=== PATIENT | male | born 1980 | race African-American/Black ===

== ENCOUNTER 2018-05-21 06:14 | Emergency (ER) | payer OTHER ==
[2018-05-21 07:02] LABS: Bilirubin Negative (Negative); Blood, Urine Moderate (Negative); Glucose, Urine (Dipstick) Negative (Negative); Leukocyte Large (Negative); Nitrite Positive (Negative); Protein, Urine (Dipstick) Negative (Neg-Trace); Specific Gravity, Urine 1.015 (1.005-1.030)
[2018-05-21 07:03] LABS: Clarity Cloudy (Clear)
[2018-05-21 07:06] LABS: #Eosinphils 0.3 thou/uL (0.0-0.7); #Lymphocytes 1.6 thou/uL (1.20-3.40); #Monocytes 0.6 thou/uL (0.11-0.59); #Neutrophils 3.5 thou/uL (1.40-6.50); %Basophils 0.8 % (0.0-1.0); %Eosinophils 4.3 % (0.0-10.0); %Lymphocytes 26.8 % (21.0-51.0); %Monocytes 9.2 % (0.0-10.0); %Neutrophils 58.8 % (42.0-75.0); Hemoglobin 14.7 g/dL (14.0-18.0); Mean Corpuscular HGB CONC 32.7 g/dL (32.0-36.0); Mean Corpuscular Hemoglobin 29.4 pg (27.0-31.0); Mean Corpuscular Volume 89.9 fL (78.0-98.0); Mean Platelet Volume 7.8 fL (7.4-10.4); Platelet Count 243 thou/uL (130-400); RBC Distribution Width 12.6 % (11.5-14.5); Red Blood Cell (RBC) Count 5.02 mill/uL (4.70-6.10); White Blood Cell (WBC) Count 5.9 thou/uL (4.8-10.8)
[2018-05-21 07:16] LABS: WBC/HPF 21-50 HPF (0-3)
[2018-05-21 07:17] LABS: Bacteria/HPF 2+ HPF (None Seen); Squamous Epithelial 0-3 HPF (0-3); Yeast-All Forms None Seen HPF (None Seen)
[2018-05-21 07:20] LABS: Crystals/HPF 4+ AMORPH URATES HPF (Negative)
[2018-05-21 07:30] LABS: ALT (SGPT) 13 U/L (8-55); AST (SGOT) 17 U/L (5-34); Alkaline Phosphatase 149 U/L (40-150); Anion Gap 10 mmol/L (10-20); BUN (Urea Nitrogen) 14 mg/dL (8.9-20.6); Bilirubin, Total 0.9 mg/dL (0.2-1.2); Calc. Creatinine Clearance 0 mL/min (70-130); Calcium 9.3 mg/dL (7.8-10.44); Carbon Dioxide 24 mmol/L (22-29); Chloride 107 mmol/L (98-107); Estimated GFR-MDRD Greater than 90; Globulin 3.7 g/dL (2.4-3.5); Glucose 120 mg/dL (70-105); Lipase 4 U/L (8-78); Potassium 4.4 mmol/L (3.5-5.1); Protein, Total 7.7 g/dL (6.0-8.3); Sodium 137 mmol/L (136-145)
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
[2018-05-21] MEDS ORDERED: ISOVUE-370 76%-LOCM 1 ML ONE (12:26)
== END 2018-05-21 13:47 | disposition home or self-care (01) ==
LOC: ERS 06:14
DX: N39.0 Urinary tract infection, site not specified (principal); R00.2 Palpitations; I10 Essential (primary) hypertension; Z79.899 Other long term (current) drug therapy
CPT/HCPCS: 36415; 51702; 74177; 80053; 81003; 81015; 83690; 85025; 93005

== ENCOUNTER 2018-08-11 09:00 | Emergency (ER) | payer OTHER ==
[2018-08-11 10:09] LABS: #Eosinphils 0.1 thou/uL (0.0-0.7); #Lymphocytes 1.2 thou/uL (1.20-3.40); #Monocytes 0.3 thou/uL (0.11-0.59); #Neutrophils 4.7 thou/uL (1.40-6.50); %Basophils 0.4 % (0.0-1.0); %Lymphocytes 19.1 % (21.0-51.0); %Monocytes 5.2 % (0.0-10.0); %Neutrophils 73.2 % (42.0-75.0); Hemoglobin 14.2 g/dL (14.0-18.0); Mean Corpuscular HGB CONC 32.6 g/dL (32.0-36.0); Mean Platelet Volume 8.2 fL (7.4-10.4); Platelet Count 181 thou/uL (130-400); RBC Distribution Width 12.7 % (11.5-14.5); Red Blood Cell (RBC) Count 4.72 mill/uL (4.70-6.10); White Blood Cell (WBC) Count 6.5 thou/uL (4.8-10.8)
[2018-08-11 10:31] LABS: ALT (SGPT) 13 U/L (8-55); AST (SGOT) 14 U/L (5-34); Albumin 3.6 g/dL (3.5-5.0); Alkaline Phosphatase 148 U/L (40-150); Anion Gap 15 mmol/L (10-20); BUN (Urea Nitrogen) 5 mg/dL (8.9-20.6); Bilirubin, Total 1.1 mg/dL (0.2-1.2); Calc. Creatinine Clearance 0 mL/min (70-130); Calcium 8.8 mg/dL (7.8-10.44); Carbon Dioxide 18 mmol/L (22-29); Chloride 109 mmol/L (98-107); Estimated GFR-MDRD Greater than 90; Globulin 3.8 g/dL (2.4-3.5); Glucose 88 mg/dL (70-105); Potassium 4.3 mmol/L (3.5-5.1); Protein, Total 7.4 g/dL (6.0-8.3); Sodium 138 mmol/L (136-145)
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
--- NOTE | 2018-08-11 12:46 | CT ---
CT PULMONARY ANGIOGRAM WITH IV CONTRAST AND 3D POSTPROCESSING: Date: 08/11/18 HISTORY: Chest pain. FINDINGS: No filling defects are seen in the pulmonary arterial vasculature to suggest pulmonary embolism. No t horacic aortic aneurysm or dissection is seen. No pleural or pericardial effusions are identified. No pneumothoraces or lobar consolidation are seen. There are dependent changes in the left lung base. T here is patchy infiltrate versus atelectatic change in the right middle lobe. IMPRESSION: No CT evidence of pulmonary embolism. POS: [facility]
--- NOTE | 2018-08-11 13:21 | CT ---
CT ABDOMEN AND PELVIS WITHOUT CONTRAST: Date: 08/11/18 HISTORY: Abdominal pain, constipation. FINDINGS: Absence of oral and IV contrast reduces the sensitivity of exam, particularly for evaluation of solid organs and bowel. There is contrast in the pelvicaliceal systems and the ureters and urinary bladder from recent CT pul monary angiogram performed earlier today at 1140 hours. No hydroureteronephrosis is seen on either side. There is a Summers catheter in the urinary bladder. No calcified gallstones are seen. No free air or free fluid is noted in the abdomen or pelvis. There is fecal material in the colon. There are vascular calcifications without evidence of aneurysmal dila tation of the abdominal aorta. There are degenerative changes of the spine. A normal appearing append ix is seen. IMPRESSION: 1. Constipation. 2. No CT evidence of urinary tract obstruction or appendicitis. POS: [facility]
[2018-08-11 13:27] LABS: Troponin I Less than 0.010 ng/mL (< 0.028)
== END 2018-08-11 15:32 | disposition home or self-care (01) ==
LOC: ERS 09:00
DX: K59.00 Constipation, unspecified (principal); I10 Essential (primary) hypertension; E78.5 Hyperlipidemia, unspecified; Z79.899 Other long term (current) drug therapy
CPT/HCPCS: 36415; 71045; 71275; 74177; 80053; 83880; 84484; 85025; 93005

== ENCOUNTER 2019-07-16 05:36 | Inpatient (IN) | payer OTHER ==
[2019-07-16 06:12] LABS: Bacteria/HPF 3+ HPF (None Seen); Bilirubin Negative (Negative); Blood, Urine Trace (Negative); Clarity Turbid (Clear); Glucose, Urine (Dipstick) Normal (Negative); Leukocyte 250 Leu/uL (Negative); Nitrite Negative (Negative); Protein, Urine (Dipstick) Negative (Neg-Trace); RBC/HPF 0-3 HPF (0-3); Squamous Epithelial 0-3 HPF (0-3); Urobilinogen Normal mg/dL (Less than 2)
[2019-07-16 06:13] LABS: Unclassified Crystals 1+ HPF (None Seen)
[2019-07-16 06:40] LABS: Hemoglobin 12.9 g/dL (14.0-18.0); Mean Corpuscular HGB CONC 32.2 g/dL (32.0-36.0); Mean Corpuscular Hemoglobin 28.9 pg (27.0-31.0); Mean Corpuscular Volume 89.5 fL (78.0-98.0); Mean Platelet Volume 8.1 fL (7.4-10.4); Platelet Count 208 thou/uL (130-400); RBC Distribution Width 12.8 % (11.5-14.5); Red Blood Cell (RBC) Count 4.46 mill/uL (4.70-6.10); White Blood Cell (WBC) Count 22.4 thou/uL (4.8-10.8)
[2019-07-16 06:54] LABS: Band 1 % (5-11); Hypochromia SLIGHT = 6-15 cells (100X) (0-5/hpf); Lymphocytes 6 % (21-51); MDiff Complete? YES; Monocytes 3 % (0-10); Neutrophil 90 % (42-75); Platelet Morphology Comment Appears Adequate
[2019-07-16 07:05] LABS: ALT (SGPT) 36 U/L (8-55); AST (SGOT) 32 U/L (5-34); Albumin 3.8 g/dL (3.5-5.0); Alkaline Phosphatase 184 U/L (40-110); Anion Gap 13 mmol/L (10-20); BUN (Urea Nitrogen) 12 mg/dL (8.9-20.6); Bilirubin, Total 1.7 mg/dL (0.2-1.2); Calc. Creatinine Clearance 0 mL/min (70-130); Calcium 8.7 mg/dL (7.8-10.44); Carbon Dioxide 20 mmol/L (22-29); Chloride 103 mmol/L (98-107); Estimated GFR-MDRD Greater than 90; Globulin 3.1 g/dL (2.4-3.5); Glucose 124 mg/dL (70-105); Potassium 3.9 mmol/L (3.5-5.1); Protein, Total 6.9 g/dL (6.0-8.3); Sodium 132 mmol/L (136-145)
[2019-07-16] MEDS ORDERED: Vancomycin HCl 1 GM in Premix Bag 1 BAG IVPB SCH (08:15)
[2019-07-16] MEDS ORDERED: cefTRIAXone\\ROCEPHIN 2 GM in Sodium Chloride 0.9% 100 ML IVPB SCH (08:15)
[2019-07-16] MEDS ORDERED: cefTRIAXone\\ROCEPHIN 2 GM VIAL ONE (08:28)
[2019-07-16] MEDS ORDERED: HYDROCORTISONE SOD SUCC IVPB SCH (08:30)
[2019-07-16] MEDS ORDERED: SODIUM CHLORIDE 0.9% IVPB SCH (08:30)
--- NOTE | 2019-07-16 09:36 | RAD ---
CHEST 1 VIEW: INDICATION: Chest pain. COMPARISON: Prior exam dated 08/11/2018. FINDINGS: Prominent right pericardial fat pad is again noted. Heart size is accentuated by exam technique. No pleural effusion or pneumothorax is evident. No acute osseous abnormality is noted. IMPRESSION: No acute cardiopulmonary abnormality. POS: [facility]
[2019-07-16] MEDS ORDERED: Ondansetron ODT 4 MG TAB PO PRN (10:14)
[2019-07-16] MEDS ORDERED: Acetaminophen 325 MG TAB PO PRN (10:14)
[2019-07-16] MEDS ORDERED: Ondansetron PF 4 MG/2 ML Vial IVP PRN (10:14)
[2019-07-16] MEDS ORDERED: Sodium Chloride 0.9% 1,000 ML IV SCH (10:15)
[2019-07-16 10:30] VITALS: BMI 35.8
[2019-07-16] MEDS ORDERED: Senokot S 8.6-50 MG TAB PO PRN (10:55)
[2019-07-16] MEDS ORDERED: Bisacodyl 10 MG SUPP PR PRN (10:55)
[2019-07-16] MEDS ORDERED: Guaifenesin DM 100-10/5 ML UDCUP PO PRN (10:55)
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
[2019-07-16] MEDS: Sodium Chloride 0.9% 1,000 ML IV SCH (13:06)
--- NOTE | 2019-07-16 14:53 | CT ---
CT OF THE ABDOMEN AND PELVIS WITHOUT IV CONTRAST INDICATION: Sepsis with indwelling Summers catheter and quadriplegia COMPARISON: CT the abdomen and pelvis dated August 11, 2018 FINDINGS: This examination is limited for the evaluation of solid organs and vascular structures due to the lac k of intravenous contrast. ABDOMEN: Lung bases: There is mild bibasilar atelectasis. Liver: No focal lesion. Gallbladder: Normal appearing. Pancreas: Normal. Adrenal glands: Normal. Spleen: Normal. Kidneys and ureters: No renal or ureteral calculus is evident. 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 Vasculature: There are mild vascular calcifications seen involving the visualized vasculature. Lymph nodes:No lymphadenopathy. Free fluid in abdomen:No free fluid is evident. PELVIS: Small and large bowel: There is a moderate amount of retained stool within the colon. There is mild g aseous distention of the sigmoid colon. Appendix:Normal Bladder: Decompressed with a Summers catheter Rectal and perirectal soft tissues:Normal. Reproductive structures: Normal. Free fluid in pelvis: No free fluid is evident. Lymphadenopathy pelvis: No lymphadenopathy is evident. Osseous structures: There is prominent heterotopic ossification surrounding both hips, right greater than left. There is diffuse osteopenia. There is scattered degenerative and osteoarthritic change. Soft tissues:Normal. IMPRESSION: 1. No acute abnormality. 2. Moderate amount retained stool within the colon.
[2019-07-16] MEDS: Metoclopramide HCl 10 MG TAB PO SCH ×2 (15:08→20:42)
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
[2019-07-16] MEDS: Vancomycin HCl 1.75 GM in Sodium Chloride 0.9% 500 ML IVPB SCH (17:38)
[2019-07-16] MEDS: Famotidine 20 MG TAB PO SCH (20:42)
[2019-07-16] MEDS ORDERED: Vancomycin HCl 1 GM in Sodium Chloride 0.9% 250 ML 300 ML IVPB SCH (21:00)
[2019-07-17] MEDS: traZODone HCl 50 MG TAB PO PRN (00:34)
[2019-07-17] MEDS: Acetaminophen 325 MG TAB PO PRN ×2 (00:34→20:04)
[2019-07-17] MEDS: Vancomycin HCl 1.75 GM in Sodium Chloride 0.9% 500 ML IVPB SCH ×2 (01:33→11:18)
[2019-07-17] MEDS: Sodium Chloride 0.9% 1,000 ML IV SCH ×2 (05:17→08:48)
[2019-07-17] MEDS: cefTRIAXone\\ROCEPHIN 2 GM in Sodium Chloride 0.9% 100 ML IVPB SCH (08:48)
[2019-07-17] MEDS: Baclofen 10 MG TAB PO PRN (08:48)
[2019-07-17] MEDS: Famotidine 20 MG TAB PO SCH ×2 (08:49→20:03)
[2019-07-17] MEDS: Metoclopramide HCl 10 MG TAB PO SCH ×3 (08:49→20:03)
[2019-07-17] MEDS: Enoxaparin Sodium 40 MG/0.4 ML SYRINGE SC SCH (08:49)
[2019-07-17] MEDS ORDERED: Lisinopril 10 MG TAB PO SCH (09:00)
[2019-07-17] MEDS: Lisinopril 10 MG TAB PO SCH (09:23)
[2019-07-17 10:51] LABS: Mean Corpuscular HGB CONC 33.7 g/dL (32.0-36.0); Mean Corpuscular Hemoglobin 29.8 pg (27.0-31.0); Mean Corpuscular Volume 88.6 fL (78.0-98.0); Mean Platelet Volume 8.6 fL (7.4-10.4); Platelet Count 190 thou/uL (130-400); RBC Distribution Width 12.7 % (11.5-14.5); White Blood Cell (WBC) Count 10.6 thou/uL (4.8-10.8)
[2019-07-17 11:09] LABS: Vancomycin, Trough 20.3 ug/mL
[2019-07-17 11:09] LABS: Chloride 113 mmol/L (98-107); Potassium 3.5 mmol/L (3.5-5.1); Sodium 140 mmol/L (136-145)
[2019-07-17 11:10] LABS: Anion Gap 15 mmol/L (10-20); BUN (Urea Nitrogen) 6 mg/dL (8.9-20.6); Calc. Creatinine Clearance 261 mL/min (70-130); Calcium 8.4 mg/dL (7.8-10.44); Carbon Dioxide 16 mmol/L (22-29); Estimated GFR-MDRD Greater than 90; Glucose 149 mg/dL (70-105)
[2019-07-17 11:33] LABS: Eosinophils 1 % (0-10); Lymphocytes 12 % (21-51); MDiff Complete? YES; Monocytes 7 % (0-10); Neutrophil 76 % (42-75); Platelet Morphology Comment Appears Adequate; Reactive Lymphocytes 4 % (0-10); Vacuoles SLIGHT
--- NOTE | 2019-07-17 13:08 | PDOC.HOSPP ---
- Subjective Encounter Date: 07/17/19 Encounter Time: 09:20 Subjective: Pt seen for followup re; sepsis. States he feels better. - Objective Vital Signs & Weight: Vital Signs (12 hours) Temp Pulse Resp BP BP BP Pulse Ox 07/17/19 11:17 98.5 F 81 17 136/86 100 07/17/19 09:23 150/80 H 07/17/19 08:00 99 07/17/19 07:08 98.2 F 81 17 150/80 H 99 07/17/19 05:28 162/92 H 07/17/19 05:05 98.5 F 84 20 98 Weight Weight 257 lb I&O: 07/16/19 07/17/19 07/18/19 06:59 06:59 06:59 Output Total 1650 Balance -1650 Result Diagrams: 07/17/19 10:18 07/17/19 10:18 Additional Labs: Accuchecks 07/17/19 07/16/19 04:26 19:23 POC Glucose 101 221 H Labs and MARs reviewed by nm Hospitalist ROS - Review of Systems Cardiovascular: denies: chest pain, palpitations, orthopnea, paroxysmal noc. dyspnea, edema, light headedness Gastrointestinal: denies: nausea, vomiting, abdominal pain, diarrhea, constipation, melena, hematochezia - Medication Medications: Active Medications Generic Name Dose Route Start Last Admin Trade Name Freq PRN Reason Stop Dose Admin Acetaminophen 650 mg 07/16/19 10:55 07/17/19 00:34 Tylenol PO 650 mg Q4H PRN Administration Headache/Fever/Mild Pain (1-3) Baclofen 10 mg 07/16/19 10:55 07/17/19 08:48 Lioresal PO 10 mg BID PRN Administration spasm Enoxaparin Sodium 40 mg 07/17/19 09:00 07/17/19 08:49 Lovenox SC 40 mg 0900 JULIO Administration Famotidine 20 mg 07/16/19 21:00 07/17/19 08:49 Pepcid PO 20 mg BID JULIO Administration Ceftriaxone Sodium 2 gm/ 100 mls @ 200 mls/hr 07/17/19 09:00 07/17/19 08:48 Sodium Chloride IVPB 100 mls Q24HR JULIO Administration Sodium Chloride 1,000 mls @ 100 mls/hr 07/16/19 11:00 07/17/19 08:48 Normal Saline 0.9% IV 07/17/19 16:59 1,000 mls .Q10H JULIO Administration Lisinopril 10 mg 07/17/19 09:00 07/17/19 09:23 Zestril PO 10 mg DAILY JULIO Administration Metoclopramide HCl 5 mg 07/16/19 15:00 07/17/19 08:49 Reglan PO 5 mg TID JULIO Administration Sodium Chloride 10 ml 07/16/19 21:00 07/17/19 08:50 Flush - Normal Saline IVF 10 ml Q12HR JULIO Administration Trazodone HCl 50 mg 07/16/19 10:55 07/17/19 00:34 Desyrel PO 50 mg HS PRN Administration Insomnia - Exam General - other findings: Obese Eye: anicteric sclera ENT: moist mucosa Neck: supple Heart: RRR Respiratory: CTAB Gastrointestinal: soft Neurological - other findings: quadriplegia Psychiatric: normal affect, normal behavior Hosp A/P (1) Sepsis Code(s): A41.9 - SEPSIS, UNSPECIFIED ORGANISM Status: Acute (2) UTI (urinary tract infection) Status: Acute (3) Quadriplegia Code(s): G82.50 - QUADRIPLEGIA, UNSPECIFIED Status: Chronic (4) HTN (hypertension) Code(s): I10 - ESSENTIAL (PRIMARY) HYPERTENSION Status: Chronic - Plan continue antibiotics HTN controlled. Continue IV ceftriaxone and IV vancomycin.
--- NOTE | 2019-07-17 17:23 | ULT ---
BILATERAL LOWER EXTREMITY VENOUS DUPLEX EXAM: 07/17/19 INDICATIONS: Bilateral lower extremity pain and edema. Veins of both lower extremities evaluated with ultrasound and Doppler. Color Doppler with spectral an alysis and compression studies performed. Deep veins of both lower extremities show normal blood flow and compression. No evidence of DVT. IMPRESSION: Negative bilateral lower extremity venous duplex exam. POS: [facility]
[2019-07-17] MEDS: Vancomycin 1.5 GRAM/300 ML BAG 1.5 GM in Premix Bag 1 BAG IVPB SCH (20:03)
[2019-07-18] MEDS ORDERED: Non-Formulary Medication 1 EACH PO PRN (00:13)
[2019-07-18] MEDS: traZODone HCl 50 MG TAB PO PRN (00:37)
[2019-07-18] MEDS ORDERED: Non-Formulary Medication 1 EACH PR PRN (04:00)
[2019-07-18] MEDS: Vancomycin 1.5 GRAM/300 ML BAG 1.5 GM in Premix Bag 1 BAG IVPB SCH ×2 (04:36→12:44)
[2019-07-18 05:46] LABS: #Eosinphils 0.2 thou/uL (0.0-0.7); #Monocytes 0.8 thou/uL (0.11-0.59); #Neutrophils 4.4 thou/uL (1.40-6.50); %Basophils 0.2 % (0.0-1.0); %Eosinophils 3.3 % (0.0-10.0); %Lymphocytes 26.8 % (21.0-51.0); %Monocytes 10.4 % (0.0-10.0); %Neutrophils 59.3 % (42.0-75.0); Hemoglobin 12.2 g/dL (14.0-18.0); Mean Corpuscular HGB CONC 33.3 g/dL (32.0-36.0); Mean Platelet Volume 8.2 fL (7.4-10.4); Platelet Count 193 thou/uL (130-400); RBC Distribution Width 12.8 % (11.5-14.5); Red Blood Cell (RBC) Count 4.07 mill/uL (4.70-6.10); White Blood Cell (WBC) Count 7.4 thou/uL (4.8-10.8)
[2019-07-18] MEDS: Baclofen 10 MG TAB PO PRN (05:46)
[2019-07-18 06:07] LABS: Anion Gap 10 mmol/L (10-20); BUN (Urea Nitrogen) 5 mg/dL (8.9-20.6); Calc. Creatinine Clearance 284 mL/min (70-130); Calcium 8.6 mg/dL (7.8-10.44); Carbon Dioxide 22 mmol/L (22-29); Chloride 112 mmol/L (98-107); Estimated GFR-MDRD Greater than 90; Glucose 81 mg/dL (70-105); Potassium 3.3 mmol/L (3.5-5.1); Sodium 141 mmol/L (136-145)
[2019-07-18] MEDS: Metoclopramide HCl 10 MG TAB PO SCH ×3 (08:35→20:08)
[2019-07-18] MEDS: Famotidine 20 MG TAB PO SCH ×2 (08:36→20:08)
[2019-07-18] MEDS: Lisinopril 10 MG TAB PO SCH (08:37)
[2019-07-18] MEDS: cefTRIAXone\\ROCEPHIN 2 GM in Sodium Chloride 0.9% 100 ML IVPB SCH (08:38)
[2019-07-18] MEDS: Enoxaparin Sodium 40 MG/0.4 ML SYRINGE SC SCH (08:38)
--- NOTE | 2019-07-18 13:04 | PDOC.HOSPP ---
- Subjective Encounter Date: 07/18/19 Encounter Time: 08:40 Subjective: Pt seen for followup re: sepsis. Feels better. - Objective Vital Signs & Weight: Vital Signs (12 hours) Temp Pulse Resp BP BP Pulse Ox 07/18/19 08:02 98.3 F 85 16 138/88 99 07/18/19 08:00 99 07/18/19 04:44 145/90 H 07/18/19 04:00 98.7 F 78 20 96 Weight Weight 257 lb I&O: 07/17/19 07/18/19 07/19/19 06:59 06:59 06:59 Intake Total 500 Output Total 1650 1300 Balance -1650 -800 Result Diagrams: 07/18/19 05:12 07/18/19 05:12 Additional Labs: Labs and MARs reviewed by ma Hospitalist ROS - Review of Systems Constitutional: denies: fever, chills, sweats, weakness, malaise Cardiovascular: denies: chest pain, palpitations, orthopnea, paroxysmal noc. dyspnea, edema, light headedness Gastrointestinal: denies: nausea, vomiting, abdominal pain, diarrhea, constipation, melena, hematochezia - Medication Medications: Active Medications Generic Name Dose Route Start Last Admin Trade Name Freq PRN Reason Stop Dose Admin Acetaminophen 650 mg 07/16/19 10:55 07/17/19 20:04 Tylenol PO 650 mg Q4H PRN Administration Headache/Fever/Mild Pain (1-3) Baclofen 10 mg 07/16/19 10:55 07/18/19 05:46 Lioresal PO 10 mg BID PRN Administration spasm Enoxaparin Sodium 40 mg 07/17/19 09:00 07/18/19 08:38 Lovenox SC 40 mg 0900 JULIO Administration Famotidine 20 mg 07/16/19 21:00 07/18/19 08:36 Pepcid PO 20 mg BID JULIO Administration Ceftriaxone Sodium 2 gm/ 100 mls @ 200 mls/hr 07/17/19 09:00 07/18/19 08:38 Sodium Chloride IVPB 100 mls Q24HR JULIO Administration Lisinopril 10 mg 07/17/19 09:00 07/18/19 08:37 Zestril PO 10 mg DAILY JULIO Administration Metoclopramide HCl 5 mg 07/16/19 15:00 07/18/19 08:35 Reglan PO 5 mg TID JULIO Administration Non-Formulary Medication 0 each 07/18/19 04:00 07/18/19 00:30 AL 1 each PRN PRN Administration BOWEL PROGRAM Sodium Chloride 10 ml 07/16/19 21:00 07/18/19 08:39 Flush - Normal Saline IVF 10 ml Q12HR JULIO Administration Trazodone HCl 50 mg 07/16/19 10:55 07/18/19 00:37 Desyrel PO 50 mg HS PRN Administration Insomnia - Exam General Appearance: awake alert General - other findings: Obese Eye: anicteric sclera ENT: moist mucosa Neck: supple Heart: RRR Respiratory: CTAB, no wheezes Gastrointestinal: soft Extremities: no cyanosis Neurological - other findings: quadriplegia Psychiatric: normal affect, normal behavior Hosp A/P (1) Sepsis Code(s): A41.9 - SEPSIS, UNSPECIFIED ORGANISM Status: Acute (2) UTI (urinary tract infection) Status: Acute (3) Bacteremia Code(s): R78.81 - BACTEREMIA Status: Acute (4) Quadriplegia Code(s): G82.50 - QUADRIPLEGIA, UNSPECIFIED Status: Chronic (5) HTN (hypertension) Code(s): I10 - ESSENTIAL (PRIMARY) HYPERTENSION Status: Chronic - Plan continue antibiotics bacteremia 2/2 samples, await identification. Urine cultures growing gram negative organisms, await identification. Replace potassium. HTN controlled. Continue IV ceftriaxone and IV vancomycin.
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
[2019-07-18] MEDS ORDERED: Potassium Chloride 20 MEQ TAB PO SCH (13:15)
[2019-07-18] MEDS ORDERED: hydrALAZINE 20 MG/ML VIAL SLOW IVP PRN (19:42)
[2019-07-19] MEDS: Acetaminophen 325 MG TAB PO PRN (00:20)
[2019-07-19] MEDS: Baclofen 10 MG TAB PO PRN ×2 (00:20→12:47)
[2019-07-19] MEDS ORDERED: hydrALAZINE 20 MG/ML VIAL SLOW IVP SCH (00:45)
[2019-07-19 06:06] LABS: #Eosinphils 0.3 thou/uL (0.0-0.7); #Lymphocytes 1.7 thou/uL (1.20-3.40); #Monocytes 0.5 thou/uL (0.11-0.59); #Neutrophils 3.3 thou/uL (1.40-6.50); %Basophils 0.2 % (0.0-1.0); %Eosinophils 5.1 % (0.0-10.0); %Lymphocytes 29.3 % (21.0-51.0); %Monocytes 8.3 % (0.0-10.0); %Neutrophils 57.1 % (42.0-75.0); Hemoglobin 11.6 g/dL (14.0-18.0); Mean Corpuscular HGB CONC 32.8 g/dL (32.0-36.0); Mean Corpuscular Hemoglobin 29.4 pg (27.0-31.0); Mean Corpuscular Volume 89.8 fL (78.0-98.0); Platelet Count 206 thou/uL (130-400); RBC Distribution Width 12.8 % (11.5-14.5); Red Blood Cell (RBC) Count 3.93 mill/uL (4.70-6.10); White Blood Cell (WBC) Count 5.8 thou/uL (4.8-10.8)
[2019-07-19 06:27] LABS: Anion Gap 9 mmol/L (10-20); BUN (Urea Nitrogen) 4 mg/dL (8.9-20.6); Calc. Creatinine Clearance 300 mL/min (70-130); Calcium 8.7 mg/dL (7.8-10.44); Carbon Dioxide 25 mmol/L (22-29); Chloride 110 mmol/L (98-107); Estimated GFR-MDRD Greater than 90; Glucose 93 mg/dL (70-105); Potassium 3.4 mmol/L (3.5-5.1); Sodium 141 mmol/L (136-145)
[2019-07-19] MEDS: Enoxaparin Sodium 40 MG/0.4 ML SYRINGE SC SCH (08:19)
[2019-07-19] MEDS: Metoclopramide HCl 10 MG TAB PO SCH ×3 (08:22→20:23)
[2019-07-19] MEDS: Lisinopril 20 MG TAB PO SCH (08:23)
[2019-07-19] MEDS: Famotidine 20 MG TAB PO SCH ×2 (08:25→20:23)
[2019-07-19] MEDS: cefTRIAXone\\ROCEPHIN 2 GM in Sodium Chloride 0.9% 100 ML IVPB SCH (08:29)
[2019-07-19] MEDS ORDERED: Morphine 2 MG/ML SYRINGE SLOW IVP PRN (12:49)
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
[2019-07-19] MEDS: Sodium Chloride 0.9% 1,000 ML IV SCH (15:16)
--- NOTE | 2019-07-19 18:54 | PDOC.HOSPP ---
- Subjective Encounter Date: 07/19/19 Encounter Time: 09:20 Subjective: Pt seen for followup re: sepsis. States he feels better. No complaints. - Objective Vital Signs & Weight: Vital Signs (12 hours) Temp Pulse Resp BP Pulse Ox 07/19/19 16:59 98.1 F 77 18 171/111 H 98 07/19/19 16:33 97.5 F L 74 14 162/108 H 94 L 07/19/19 11:42 97.6 F 80 14 177/119 H 93 L 07/19/19 08:00 94 L 07/19/19 07:43 97.5 F L 74 14 162/108 H 94 L Weight Weight 257 lb I&O: 07/18/19 07/19/19 07/20/19 06:59 06:59 06:59 Intake Total 500 621 Output Total 1300 4400 Balance -796 -1273 Result Diagrams: 07/19/19 05:24 07/19/19 05:24 Additional Labs: Labs and MARs reviewed by nj Hospitalist ROS - Review of Systems Constitutional: denies: fever, chills, sweats, weakness, malaise Cardiovascular: denies: chest pain, palpitations, orthopnea, paroxysmal noc. dyspnea, edema, light headedness - Medication Medications: Active Medications Generic Name Dose Route Start Last Admin Trade Name Freq PRN Reason Stop Dose Admin Acetaminophen 650 mg 07/16/19 10:55 07/19/19 00:20 Tylenol PO 650 mg Q4H PRN Administration Headache/Fever/Mild Pain (1-3) Baclofen 10 mg 07/16/19 10:55 07/19/19 12:47 Lioresal PO 10 mg BID PRN Administration spasm Enoxaparin Sodium 40 mg 07/17/19 09:00 07/19/19 08:19 Lovenox SC 40 mg 0900 JULIO Administration Famotidine 20 mg 07/16/19 21:00 07/19/19 08:25 Pepcid PO 20 mg BID JULIO Administration Ceftriaxone Sodium 2 gm/ 100 mls @ 200 mls/hr 07/17/19 09:00 07/19/19 08:29 Sodium Chloride IVPB 100 mls Q24HR JULIO Administration Sodium Chloride 1,000 mls @ 50 mls/hr 07/19/19 14:00 07/19/19 15:16 Normal Saline 0.9% IV 1,000 mls .Q20H JULIO Administration Lisinopril 40 mg 07/19/19 09:00 07/19/19 08:23 Zestril PO 10 mg DAILY JULIO Administration Metoclopramide HCl 5 mg 07/16/19 15:00 07/19/19 15:17 Reglan PO 5 mg TID JULIO Administration Non-Formulary Medication 0 each 07/18/19 04:00 07/18/19 00:30 [place] 1 each PRN PRN Administration BOWEL PROGRAM Sodium Chloride 10 ml 07/16/19 21:00 07/19/19 08:29 Flush - Normal Saline IVF 10 ml Q12HR JULIO Administration Trazodone HCl 50 mg 07/16/19 10:55 07/18/19 00:37 Desyrel PO 50 mg HS PRN Administration Insomnia - Exam General Appearance: awake alert General - other findings: Obese Eye: anicteric sclera ENT: no oropharyngeal lesions, moist mucosa Neck: supple Heart: RRR Respiratory: CTAB Gastrointestinal: soft Neurological - other findings: Quadriplegia Psychiatric: normal affect, normal behavior Hosp A/P (1) Sepsis Code(s): A41.9 - SEPSIS, UNSPECIFIED ORGANISM Status: Acute (2) UTI (urinary tract infection) Status: Acute (3) Bacteremia Code(s): R78.81 - BACTEREMIA Status: Acute (4) Quadriplegia Code(s): G82.50 - QUADRIPLEGIA, UNSPECIFIED Status: Chronic (5) HTN (hypertension) Code(s): I10 - ESSENTIAL (PRIMARY) HYPERTENSION Status: Chronic - Plan continue antibiotics Sepsis due to UTI due to indwelling catheter, present on admission. bacteremia 2/2 samples with staph epidermidis. Urine cultures growing Enterobacter and Pseudomonas. Replace potassium. BP high, add scheduled hydralazine. Start PRN PO clonidine. Continue IV ceftriaxone.
[2019-07-19] MEDS ORDERED: Potassium Chloride 20 MEQ TAB PO SCH (19:00)
[2019-07-19] MEDS: hydrALAZINE 25 MG TAB PO SCH (20:23)
[2019-07-20] MEDS: cloNIDine 0.1 MG TAB PO PRN ×2 (00:56→18:31)
[2019-07-20 06:21] LABS: #Eosinphils 0.3 thou/uL (0.0-0.7); #Lymphocytes 1.9 thou/uL (1.20-3.40); #Monocytes 0.5 thou/uL (0.11-0.59); #Neutrophils 3.8 thou/uL (1.40-6.50); %Basophils 0.1 % (0.0-1.0); %Eosinophils 4.5 % (0.0-10.0); %Lymphocytes 29.8 % (21.0-51.0); %Monocytes 7.8 % (0.0-10.0); %Neutrophils 57.8 % (42.0-75.0); Hemoglobin 12.1 g/dL (14.0-18.0); Mean Corpuscular HGB CONC 32.7 g/dL (32.0-36.0); Mean Corpuscular Hemoglobin 29.4 pg (27.0-31.0); Mean Corpuscular Volume 89.8 fL (78.0-98.0); Platelet Count 229 thou/uL (130-400); RBC Distribution Width 12.6 % (11.5-14.5); Red Blood Cell (RBC) Count 4.11 mill/uL (4.70-6.10); White Blood Cell (WBC) Count 6.5 thou/uL (4.8-10.8)
[2019-07-20 06:42] LABS: Anion Gap 10 mmol/L (10-20); BUN (Urea Nitrogen) 5 mg/dL (8.9-20.6); Calc. Creatinine Clearance 311 mL/min (70-130); Calcium 8.8 mg/dL (7.8-10.44); Carbon Dioxide 23 mmol/L (22-29); Chloride 109 mmol/L (98-107); Estimated GFR-MDRD Greater than 90; Glucose 91 mg/dL (70-105); Potassium 4.2 mmol/L (3.5-5.1); Sodium 138 mmol/L (136-145)
[2019-07-20] MEDS: Lisinopril 20 MG TAB PO SCH (07:53)
[2019-07-20] MEDS: Metoclopramide HCl 10 MG TAB PO SCH ×3 (07:53→19:54)
[2019-07-20] MEDS: Famotidine 20 MG TAB PO SCH ×2 (07:54→19:54)
[2019-07-20] MEDS: Enoxaparin Sodium 40 MG/0.4 ML SYRINGE SC SCH (07:55)
[2019-07-20] MEDS: hydrALAZINE 25 MG TAB PO SCH ×3 (07:55→19:54)
[2019-07-20] MEDS: Sodium Chloride 0.9% 1,000 ML IV SCH (07:56)
[2019-07-20] MEDS: cefTRIAXone\\ROCEPHIN 2 GM in Sodium Chloride 0.9% 100 ML IVPB SCH (08:05)
--- NOTE | 2019-07-20 16:52 | PRG ---
DATE OF SERVICE: 07/20/2019 SUBJECTIVE: Feeling well. No major complaints. OBJECTIVE: VITAL SIGNS: He is afebrile. Other vital signs are normal except for elevation of systolic and diastolic moderate elevation. GENERAL: He is awake, alert, oriented. HEENT: Ocular movements conjugate. Sclerae white. LUNGS: Clear to auscultation and percussion. HEART: S1-S2 regular rate. ABDOMEN: Soft, not distended. Summers catheter in place. LABORATORY DATA: White cell count 6.5, hemoglobin 12.1, platelets 229. Creatinine 0.52. The identification of the organisms from the urine culture include Enterobacter aerogenes and Pseudomonas pseudoalcaligenes. We will go ahead and add Cipro. Continue Rocephin and he should be finishing his treatment course in about 4 days. Could consider continuation of treatment in an outpatient setting or home with a visiting nurse administering him Rocephin in the muscle plus oral ciprofloxacin for another 4 days. Job ID: [id number]
[2019-07-20] MEDS: Baclofen 10 MG TAB PO PRN (16:58)
--- NOTE | 2019-07-20 19:45 | PDOC.HOSPP ---
- Subjective Encounter Date: 07/20/19 Encounter Time: 09:40 Subjective: Pt seen for followup re: sepsis. States he feels better. - Objective Vital Signs & Weight: Vital Signs (12 hours) Temp Pulse Resp BP BP Pulse Ox 07/20/19 18:31 182/128 H 07/20/19 16:48 171/113 H 07/20/19 14:48 81 163/108 H 07/20/19 11:41 67 165/104 H 07/20/19 08:00 100 07/20/19 07:55 70 07/20/19 07:53 178/89 H 07/20/19 07:47 98.8 F 70 20 178/89 H 100 Weight Weight 257 lb I&O: 07/19/19 07/20/19 07/21/19 06:59 06:59 06:59 Intake Total 621 1350 780 Output Total 4400 2500 1900 Balance -3779 -1150 -1120 Result Diagrams: 07/20/19 05:40 07/20/19 05:40 Additional Labs: Labs and MARs reviewed by hi Hospitalist ROS - Review of Systems Cardiovascular: denies: chest pain, palpitations, orthopnea, paroxysmal noc. dyspnea, edema, light headedness Skin: denies: rash, lesions, yolette, bruising - Medication Medications: Active Medications Generic Name Dose Route Start Last Admin Trade Name Freq PRN Reason Stop Dose Admin Acetaminophen 650 mg 07/16/19 10:55 07/19/19 00:20 Tylenol PO 650 mg Q4H PRN Administration Headache/Fever/Mild Pain (1-3) Baclofen 10 mg 07/16/19 10:55 07/20/19 16:58 Lioresal PO 10 mg BID PRN Administration spasm Clonidine 0.1 mg 07/19/19 19:01 07/20/19 18:31 Catapres PO 0.1 mg Q4H PRN Administration SBP Greater Than 180 Enoxaparin Sodium 40 mg 07/17/19 09:00 07/20/19 07:55 Lovenox SC 40 mg 0900 JULIO Administration Famotidine 20 mg 07/16/19 21:00 07/20/19 07:54 Pepcid PO 20 mg BID JULIO Administration Hydralazine HCl 50 mg 07/19/19 21:00 07/20/19 14:48 Apresoline PO 50 mg TID JULIO Administration Ceftriaxone Sodium 2 gm/ 100 mls @ 200 mls/hr 07/17/19 09:00 07/20/19 08:05 Sodium Chloride IVPB 100 mls Q24HR JULIO Administration Sodium Chloride 1,000 mls @ 50 mls/hr 07/19/19 14:00 07/20/19 07:56 Normal Saline 0.9% IV 1,000 mls .Q20H JULIO Administration Lisinopril 40 mg 07/19/19 09:00 07/20/19 07:53 Zestril PO 20 mg DAILY JULIO Administration Metoclopramide HCl 5 mg 07/16/19 15:00 07/20/19 14:46 Reglan PO 5 mg TID JULOI Administration Non-Formulary Medication 0 each 07/18/19 04:00 07/18/19 00:30 MT 1 each PRN PRN Administration BOWEL PROGRAM Sodium Chloride 10 ml 07/16/19 21:00 07/20/19 08:11 Flush - Normal Saline IVF Not Given Q12HR JULIO Trazodone HCl 50 mg 07/16/19 10:55 07/18/19 00:37 Desyrel PO 50 mg HS PRN Administration Insomnia - Exam General - other findings: Obese Eye: anicteric sclera ENT: moist mucosa Neck: supple Heart: RRR Respiratory: no wheezes, no rales Gastrointestinal: soft, non-tender Neurological - other findings: quadriplegic Psychiatric: normal affect, normal behavior Hosp A/P (1) Sepsis Code(s): A41.9 - SEPSIS, UNSPECIFIED ORGANISM Status: Acute (2) UTI (urinary tract infection) Status: Acute (3) Bacteremia Code(s): R78.81 - BACTEREMIA Status: Acute (4) Quadriplegia Code(s): G82.50 - QUADRIPLEGIA, UNSPECIFIED Status: Chronic (5) HTN (hypertension) Code(s): I10 - ESSENTIAL (PRIMARY) HYPERTENSION Status: Chronic - Plan thurston catheter, continue antibiotics bacteremia 2/2 blood samples with staph epidermidis. Sepsis due to UTI due to indwelling catheter, present on admission. Urine cultures growing Enterobacter and Pseudomonas. Continue IV ceftriaxone. Add ciprofloxacin
[2019-07-20] MEDS: Ciprofloxacin 500 MG TAB PO SCH (19:54)
[2019-07-20] MEDS: traZODone HCl 50 MG TAB PO PRN (23:26)
[2019-07-21] MEDS ORDERED: Ciprofloxacin 500 MG TAB ONE (05:35)
[2019-07-21] MEDS: Ciprofloxacin 500 MG TAB PO SCH ×2 (06:00→20:03)
[2019-07-21] MEDS: Sodium Chloride 0.9% 1,000 ML IV SCH (07:00)
[2019-07-21] MEDS: Metoclopramide HCl 10 MG TAB PO SCH ×3 (09:27→20:04)
[2019-07-21] MEDS: Lisinopril 20 MG TAB PO SCH (09:27)
[2019-07-21] MEDS: Enoxaparin Sodium 40 MG/0.4 ML SYRINGE SC SCH (09:27)
[2019-07-21] MEDS: hydrALAZINE 25 MG TAB PO SCH ×4 (09:47→21:17)
[2019-07-21] MEDS: Famotidine 20 MG TAB PO SCH ×2 (09:47→20:04)
[2019-07-21] MEDS: cefTRIAXone\\ROCEPHIN 2 GM in Sodium Chloride 0.9% 100 ML IVPB SCH (12:33)
[2019-07-21 13:41] LABS: Hemoglobin 12.4 g/dL (14.0-18.0); Mean Corpuscular HGB CONC 32.2 g/dL (32.0-36.0); Mean Corpuscular Hemoglobin 29.6 pg (27.0-31.0); Mean Corpuscular Volume 92.1 fL (78.0-98.0); Mean Platelet Volume 8.4 fL (7.4-10.4); Platelet Count 226 thou/uL (130-400); RBC Distribution Width 12.8 % (11.5-14.5); Red Blood Cell (RBC) Count 4.17 mill/uL (4.70-6.10); White Blood Cell (WBC) Count 7.1 thou/uL (4.8-10.8)
[2019-07-21 14:01] LABS: Band 2 % (5-11); Eosinophils 3 % (0-10); Lymphocytes 26 % (21-51); MDiff Complete? YES; Monocytes 7 % (0-10); Myelocyte 1 % (0-0); Neutrophil 61 % (42-75); RBC Morphology Normal
--- NOTE | 2019-07-21 15:18 | PDOC.HOSPP ---
- Subjective Encounter Date: 07/21/19 Encounter Time: 08:40 Subjective: Pt seen for followup re: sepsis. Feels well. - Objective Vital Signs & Weight: Vital Signs (12 hours) Pulse BP 07/21/19 09:47 64 07/21/19 09:27 151/99 H Weight Weight 257 lb I&O: 07/20/19 07/21/19 07/22/19 06:59 06:59 06:59 Intake Total 1350 780 240 Output Total 2500 3775 975 Balance -1150 -2095 -735 Result Diagrams: 07/21/19 07:13 07/20/19 05:40 Additional Labs: Labs and MARs reviewed by md Hospitalist ROS - Review of Systems Cardiovascular: denies: chest pain, palpitations, orthopnea, paroxysmal noc. dyspnea, edema, light headedness Skin: denies: rash, lesions, yolette, bruising - Medication Medications: Active Medications Generic Name Dose Route Start Last Admin Trade Name Freq PRN Reason Stop Dose Admin Acetaminophen 650 mg 07/16/19 10:55 07/19/19 00:20 Tylenol PO 650 mg Q4H PRN Administration Headache/Fever/Mild Pain (1-3) Baclofen 10 mg 07/16/19 10:55 07/20/19 16:58 Lioresal PO 10 mg BID PRN Administration spasm Ciprofloxacin 500 mg 07/20/19 20:00 07/21/19 06:00 Cipro PO 500 mg 06,1999 JULIO Administration Clonidine 0.1 mg 07/19/19 19:01 07/20/19 18:31 Catapres PO 0.1 mg Q4H PRN Administration SBP Greater Than 180 Enoxaparin Sodium 40 mg 07/17/19 09:00 07/21/19 09:27 Lovenox SC 40 mg 0900 JULIO Administration Famotidine 20 mg 07/16/19 21:00 07/21/19 09:47 Pepcid PO Not Given BID JULIO Hydralazine HCl 50 mg 07/19/19 21:00 07/21/19 09:47 Apresoline PO Not Given TID JULIO Ceftriaxone Sodium 2 gm/ 100 mls @ 200 mls/hr 07/17/19 09:00 07/21/19 12:33 Sodium Chloride IVPB 100 mls Q24HR JULIO Administration Sodium Chloride 1,000 mls @ 50 mls/hr 07/19/19 14:00 07/21/19 07:00 Normal Saline 0.9% IV 1,000 mls .Q20H JULIO Administration Lisinopril 40 mg 07/19/19 09:00 07/21/19 09:27 Zestril PO 40 mg DAILY JULIO Administration Metoclopramide HCl 5 mg 07/16/19 15:00 07/21/19 09:27 Reglan PO 5 mg TID JULIO Administration Non-Formulary Medication 0 each 07/18/19 04:00 07/18/19 00:30 NE 1 each PRN PRN Administration BOWEL PROGRAM Sodium Chloride 10 ml 07/16/19 21:00 07/21/19 09:47 Flush - Normal Saline IVF Not Given Q12HR JULIO Trazodone HCl 50 mg 07/16/19 10:55 07/20/19 23:26 Desyrel PO 50 mg HS PRN Administration Insomnia - Exam General Appearance: NAD Eye: anicteric sclera ENT: moist mucosa Neck: supple Heart: RRR Respiratory: CTAB Gastrointestinal: soft, non-tender Psychiatric: normal affect, normal behavior Hosp A/P (1) Sepsis Code(s): A41.9 - SEPSIS, UNSPECIFIED ORGANISM Status: Acute (2) UTI (urinary tract infection) Status: Acute (3) Bacteremia Code(s): R78.81 - BACTEREMIA Status: Acute (4) Quadriplegia Code(s): G82.50 - QUADRIPLEGIA, UNSPECIFIED Status: Chronic (5) HTN (hypertension) Code(s): I10 - ESSENTIAL (PRIMARY) HYPERTENSION Status: Chronic - Plan continue antibiotics Continue IV ceftriaxone and oral ciprofloxacin Case management working on outpt antibiotics. Sepsis due to UTI due to indwelling catheter, present on admission. Urine cultures growing Enterobacter and Pseudomonas.
[2019-07-21 19:40] LABS: Anion Gap 12 mmol/L (10-20); BUN (Urea Nitrogen) 6 mg/dL (8.9-20.6); Calc. Creatinine Clearance 305 mL/min (70-130); Calcium 8.8 mg/dL (7.8-10.44); Carbon Dioxide 22 mmol/L (22-29); Chloride 107 mmol/L (98-107); Estimated GFR-MDRD Greater than 90; Glucose 80 mg/dL (70-105); Potassium 4.2 mmol/L (3.5-5.1); Sodium 137 mmol/L (136-145)
[2019-07-21] MEDS: cloNIDine 0.1 MG TAB PO PRN (20:04)
[2019-07-22] MEDS: Ciprofloxacin 500 MG TAB PO SCH (04:15)
[2019-07-22] MEDS: Baclofen 10 MG TAB PO PRN (04:15)
[2019-07-22 05:38] LABS: #Eosinphils 0.3 thou/uL (0.0-0.7); #Lymphocytes 2.2 thou/uL (1.20-3.40); #Monocytes 0.6 thou/uL (0.11-0.59); #Neutrophils 4.6 thou/uL (1.40-6.50); %Basophils 0.6 % (0.0-1.0); %Eosinophils 4.5 % (0.0-10.0); %Lymphocytes 27.8 % (21.0-51.0); %Monocytes 8.2 % (0.0-10.0); Hemoglobin 12.1 g/dL (14.0-18.0); Mean Corpuscular HGB CONC 33.1 g/dL (32.0-36.0); Mean Corpuscular Hemoglobin 29.5 pg (27.0-31.0); Mean Corpuscular Volume 89.2 fL (78.0-98.0); Mean Platelet Volume 7.6 fL (7.4-10.4); Platelet Count 224 thou/uL (130-400); RBC Distribution Width 12.8 % (11.5-14.5); Red Blood Cell (RBC) Count 4.12 mill/uL (4.70-6.10); White Blood Cell (WBC) Count 7.8 thou/uL (4.8-10.8)
[2019-07-22 05:56] LABS: Anion Gap 12 mmol/L (10-20); BUN (Urea Nitrogen) 7 mg/dL (8.9-20.6); Calc. Creatinine Clearance 300 mL/min (70-130); Calcium 8.8 mg/dL (7.8-10.44); Carbon Dioxide 23 mmol/L (22-29); Chloride 107 mmol/L (98-107); Estimated GFR-MDRD Greater than 90; Glucose 91 mg/dL (70-105); Sodium 138 mmol/L (136-145)
[2019-07-22] MEDS: cefTRIAXone\\ROCEPHIN 2 GM in Sodium Chloride 0.9% 100 ML IVPB SCH (08:48)
[2019-07-22] MEDS: Enoxaparin Sodium 40 MG/0.4 ML SYRINGE SC SCH (08:58)
[2019-07-22] MEDS: Metoclopramide HCl 10 MG TAB PO SCH ×2 (08:59→15:16)
[2019-07-22] MEDS: hydrALAZINE 25 MG TAB PO SCH ×2 (09:00→15:15)
[2019-07-22] MEDS: Lisinopril 20 MG TAB PO SCH (09:00)
[2019-07-22] MEDS: Famotidine 20 MG TAB PO SCH (09:00)
[2019-07-22] MEDS: cloNIDine 0.1 MG TAB PO PRN (15:16)
[2019-07-22 15:20] VITALS: TEMP 98.4
[2019-07-22 16:05] VITALS: BP 125/80
--- NOTE | 2019-07-22 19:24 | DIS ---
DATE OF ADMISSION: 07/16/2019 DATE OF DISCHARGE: 07/22/2019 PRIMARY CARE PROVIDER: Amanda Velarde. DISCHARGE DIAGNOSES: 1. Sepsis. 2. Sepsis secondary to urinary tract infection from indwelling Summers catheter. 3. Hypertensive urgency. CONDITION OF PATIENT ON THE DAY OF DISCHARGE: Stable. I assessed Mr. Mccain on the day of discharge. He denies any chest pain or shortness of breath. Vital signs are stable. S1 and S2 are heard, regular. Lungs are clear to auscultation bilaterally. CONSULTATIONS DURING THIS HOSPITALIZATION: Infectious Diseases, Dr. Archer. HOSPITAL COURSE: Mr. Mccain is a pleasant 39-year-old gentleman, who was admitted to [facility] on 07/16/2019, for sepsis secondary to urinary tract infection. Please refer to Dr. Ortiz's history and physical note dated 07/16/2019, for further details. He was treated with intravenous antibiotics. Blood cultures grew Staphylococcus epidermidis and Staphylococcus cohnii, likely contaminant. Urine culture grew Alcaligenes faecalis, Enterobacter aerogenes, and Pseudomonas. He has been switched to oral ciprofloxacin and intramuscular ceftriaxone, three more days following discharge. Arrangements are being made for home health for administration of the antibiotic. His blood pressures were high during this hospitalization. He has been advised to check his blood pressure and heart rate 3 times a day and show the readings to primary care provider. On the day of discharge, he has white count of 7800, hemoglobin 12.1, platelet count 224,000, normal sodium, normal potassium, and creatinine of 0.54. Many thanks for allowing me to participate in your patient's care. Please feel free to contact me with any questions or concerns. DISCHARGE DESTINATION: Home. TIME SPENT: Total amount of time spent coordinating this discharge: 32 minutes. Job ID: [id number]
== END 2019-07-22 16:59 | disposition home health service (06) | DRG 698 ==
LOC: ERS 05:36 → T4-A 10:11
PROVIDERS: ADMIT Internal Medicine; ATTEND Internal Medicine
DX: T83.511A Infection and inflammatory reaction due to indwelling urethral catheter, initial encounter (principal); G82.50 Quadriplegia, unspecified; A41.89 Other specified sepsis; N39.0 Urinary tract infection, site not specified; E78.5 Hyperlipidemia, unspecified; I10 Essential (primary) hypertension; N31.9 Neuromuscular dysfunction of bladder, unspecified; B96.89 Other specified bacterial agents as the cause of diseases classified elsewhere; E66.9 Obesity, unspecified; B96.5 Pseudomonas (aeruginosa) (mallei) (pseudomallei) as the cause of diseases classified elsewhere; B95.7 Other staphylococcus as the cause of diseases classified elsewhere; Y84.6 Urinary catheterization as the cause of abnormal reaction of the patient, or of later complication, without mention of misadventure at the time of the procedure; Z93.0 Tracheostomy status; Z79.899 Other long term (current) drug therapy; Z99.3 Dependence on wheelchair; Z93.1 Gastrostomy status; Z87.440 Personal history of urinary (tract) infections; Z68.35 Body mass index [BMI] 35.0-35.9, adult
CPT/HCPCS: 36415; 36416; 71045; 74176; 80048; 80053; 80202; 81003; 81015; 83605; 83880; 84484; 85025; 87040; 87077; 87086; 87149; 87186; 87804; 93005; 93970; J0360; J0696; J1650; J1720; J2270; J3370; J3490; J7050

== ENCOUNTER 2019-10-04 01:25 | Emergency (ER) | payer OTHER ==
[2019-10-04 02:27] LABS: Bacteria/HPF 2+ HPF (None Seen); Bilirubin Negative (Negative); Blood, Urine Trace (Negative); Clarity Turbid (Clear); Glucose, Urine (Dipstick) Normal (Negative); Leukocyte 500 Leu/uL (Negative); Nitrite Negative (Negative); Protein, Urine (Dipstick) Negative (Neg-Trace); RBC/HPF 0-3 HPF (0-3); Squamous Epithelial 0-3 HPF (0-3); Urobilinogen Normal mg/dL (Less than 2); WBC/HPF 21-50 HPF (0-3)
[2019-10-04 02:32] LABS: #Eosinphils 0.3 thou/uL (0.0-0.7); #Lymphocytes 2.1 thou/uL (1.20-3.40); #Monocytes 0.5 thou/uL (0.11-0.59); #Neutrophils 4.1 thou/uL (1.40-6.50); %Basophils 0.7 % (0.0-1.0); %Eosinophils 3.7 % (0.0-10.0); %Lymphocytes 29.6 % (21.0-51.0); %Monocytes 7.4 % (0.0-10.0); %Neutrophils 58.7 % (42.0-75.0); Hemoglobin 12.8 g/dL (14.0-18.0); Mean Corpuscular HGB CONC 33.9 g/dL (32.0-36.0); Mean Corpuscular Hemoglobin 30.6 pg (27.0-31.0); Mean Corpuscular Volume 90.1 fL (78.0-98.0); Mean Platelet Volume 7.6 fL (7.4-10.4); Platelet Count 232 thou/uL (130-400); RBC Distribution Width 12.7 % (11.5-14.5); Red Blood Cell (RBC) Count 4.19 mill/uL (4.70-6.10)
[2019-10-04] MEDS ORDERED: Lidocaine Viscous Sol 2% 15 ml UD Cup ONE (02:44)
[2019-10-04] MEDS ORDERED: Aspirin 325 MG TAB ONE (02:44)
[2019-10-04] MEDS ORDERED: Mag-Al 1200 mg/1200 mg/30 ML UDCUP ONE (02:44)
[2019-10-04 03:45] LABS: ALT (SGPT) 11 U/L (8-55); AST (SGOT) 13 U/L (5-34); Albumin 3.8 g/dL (3.5-5.0); Alkaline Phosphatase 161 U/L (40-110); Anion Gap 13 mmol/L (10-20); BUN (Urea Nitrogen) 7 mg/dL (8.9-20.6); Bilirubin, Total 0.7 mg/dL (0.2-1.2); CK (CPK) 36 U/L (30-200); Calc. Creatinine Clearance 0 mL/min (70-130); Calcium 8.8 mg/dL (7.8-10.44); Carbon Dioxide 24 mmol/L (22-29); Chloride 105 mmol/L (98-107); Estimated GFR-MDRD Greater than 90; Globulin 3.6 g/dL (2.4-3.5); Glucose 110 mg/dL (70-105); Lipase 7 U/L (8-78); Potassium 3.5 mmol/L (3.5-5.1); Protein, Total 7.4 g/dL (6.0-8.3); Sodium 138 mmol/L (136-145)
[2019-10-04] MEDS ORDERED: Acetaminophen 500 MG TAB ONE (04:56)
--- NOTE | 2019-10-04 08:12 | RAD ---
SINGLE VIEW OF THE CHEST: COMPARISON: 07/16/2019. HISTORY: Chest pain. FINDINGS: Single view of the chest shows a normal sized cardiomediastinal silhouette. There is no evidence of c onsolidation, mass, or pleural effusion. The bones are unremarkable. IMPRESSION: No evidence of acute cardiopulmonary disease. POS: [facility]
--- NOTE | 2019-10-04 08:15 | CT ---
PRELIMINARY REPORT/[facility]/EMERGENCY AFTER HOURS PROCEDURE EXAM: CT Abdomen and Pelvis with Intravenous Contrast CLINICAL HISTORY: 39yo M with pmh of paralysis and HTN presents for elevated BP and CP. Pt reports home BP of 230s/120/ s (though he states he was laying on cuff slightly at the time). Pt had Sx of MARIE and CP with intermittent SOB. He took a clonidine and Sx improved though the CP remains. It is dull and pressure in character, substernal, non radiating, no transforming factors other than the clonidine. TECHNIQUE: Axial computed tomography images of the abdomen and pelvis with intravenous contrast. CONTRAST: With; ISOVUE 370,100mL COMPARISON: None provided. FINDINGS: LUNG BASES: No basilar airspace consolidation or pleural effusion. LIVER: Unremarkable. GALLBLADDER AND BILE DUCTS: Unremarkable. No calcified stone. No ductal dilation. PANCREAS: Unremarkable. SPLEEN: Unremarkable. ADRENAL GLANDS: Unremarkable. KIDNEYS, URETERS, AND BLADDER: Summers catheter is present in decompressed bladder. The kidneys are are within normal limits. STOMACH AND BOWEL: No intestinal obstruction or inflammation. Large amount of stool throughout the co hailey. APPENDIX: Appendix is within normal limits. PERITONEUM: No free fluid. No free air. LYMPH NODES: No lymphadenopathy. REPRODUCTIVE: Unremarkable as visualized. VASCULATURE: No aortic aneurysm. BONES: No fracture or suspicious osseous abnormality. ABDOMINAL WALL AND SOFT TISSUES: Unremarkable. IMPRESSION: Large amount of stool throughout the colon. Recommend correlation with symptoms of constipation. The remainder of the exam is within normal limits. ELECTRONICALLY SIGNED BY: Mariza Null MD Oct 04, 2019 4:13:30 AM [employer] This report is intended for review by the ordering physician only, in accordance of law. If you recei ve this report in error, please call [facility] at [phone]. FINAL REPORT EMERGENT AFTER HOURS CT ABDOMEN AND PELVIS WITH IV CONTRAST: HISTORY: Abdominal pain. Elevated blood pressure and chest pain. IMPRESSION: 1. No acute findings are seen in the abdomen or pelvis. 2. Moderate amount retained fecal material seen throughout the colon suggesting constipation. 3. No CT evidence of appendicitis. 4. Incomplete visualization of minimal patchy density in the right middle lobe probably attributable to atelectasis. Pneumonitis cannot be entirely excluded. 5. Summers catheter in decompressed urinary bladder. 6. Stable chronic changes involving the hips bilaterally with heterotopic ossification seen bilateral ly. Findings are in agreement with the preliminary report by [facility]. Code QA Transcribed Date/Time: 10/04/2019 8:46 AM
[2019-10-04] MEDS ORDERED: Iopamidol 370 76% 100 ML VIAL ONE (13:47)
== END 2019-10-04 05:37 | disposition home or self-care (01) ==
LOC: ERS 01:25
DX: K59.00 Constipation, unspecified (principal); E78.5 Hyperlipidemia, unspecified; I10 Essential (primary) hypertension; K21.9 Gastro-esophageal reflux disease without esophagitis; Z79.899 Other long term (current) drug therapy
CPT/HCPCS: 71045; 74177; 80053; 81003; 81015; 82550; 83690; 84484; 85025; 87077; 87086; 87186; 93005; Q9967

== ENCOUNTER 2019-10-10 03:29 | Observation (INO) | payer OTHER ==
[2019-10-10 04:41] LABS: Mean Corpuscular HGB CONC 33.4 g/dL (32.0-36.0); Mean Corpuscular Hemoglobin 30.2 pg (27.0-31.0); Mean Corpuscular Volume 90.5 fL (78.0-98.0); Mean Platelet Volume 8.8 fL (7.4-10.4); Platelet Count 201 thou/uL (130-400); RBC Distribution Width 12.9 % (11.5-14.5); Red Blood Cell (RBC) Count 4.29 mill/uL (4.70-6.10); White Blood Cell (WBC) Count 4.7 thou/uL (4.8-10.8)
[2019-10-10 05:09] LABS: ALT (SGPT) 10 U/L (8-55); AST (SGOT) 11 U/L (5-34); Albumin 3.9 g/dL (3.5-5.0); Alkaline Phosphatase 158 U/L (40-110); Anion Gap 14 mmol/L (10-20); BUN (Urea Nitrogen) 5 mg/dL (8.9-20.6); Bilirubin, Total 0.6 mg/dL (0.2-1.2); Calc. Creatinine Clearance 0 mL/min (70-130); Calcium 8.9 mg/dL (7.8-10.44); Carbon Dioxide 21 mmol/L (22-29); Chloride 107 mmol/L (98-107); Estimated GFR-MDRD Greater than 90; Globulin 3.2 g/dL (2.4-3.5); Glucose 98 mg/dL (70-105); Potassium 4.6 mmol/L (3.5-5.1); Protein, Total 7.1 g/dL (6.0-8.3); Sodium 137 mmol/L (136-145)
[2019-10-10 05:13] LABS: Band 4 % (5-11); Eosinophils 1 % (0-10); Lymphocytes 42 % (21-51); MDiff Complete? YES; Monocytes 1 % (0-10); Neutrophil 52 % (42-75); Platelet Morphology Comment Appears Adequate; RBC Morphology Normal
[2019-10-10] MEDS ORDERED: Aspirin 325 MG TAB ONE (06:14)
[2019-10-10] MEDS ORDERED: hydrALAZINE 20 MG/ML VIAL SLOW IVP PRN (06:25)
[2019-10-10 08:05] LABS: Troponin I 0.014 ng/mL (< 0.028)
[2019-10-10] MEDS ORDERED: Senokot S 8.6-50 MG TAB PO PRN (08:40)
[2019-10-10] MEDS ORDERED: Acetaminophen 325 MG TAB PO PRN (08:40)
[2019-10-10 10:37] VITALS: BMI 35.7
[2019-10-10] MEDS: Enoxaparin Sodium 40 MG/0.4 ML SYRINGE SC SCH (11:57)
[2019-10-10] MEDS ORDERED: cloNIDine 0.1 MG TAB PO PRN (12:28)
[2019-10-10] MEDS ORDERED: cloNIDine 0.1 MG TAB PO SCH ×2 (12:30→21:00)
[2019-10-10] MEDS ORDERED: Polyethylene Glycol 3350 17 GM Packet PO SCH (12:30)
[2019-10-10] MEDS ORDERED: Ketorolac Tromethamine 30 MG/ML VIAL IVP SCH (12:30)
[2019-10-10] MEDS ORDERED: Nitroglycerin 0.4 MG TAB (25 Tab Bottle) SL SCH (12:30)
[2019-10-10] MEDS ORDERED: Amlodipine 10 MG TAB PO SCH (12:30)
--- NOTE | 2019-10-10 12:40 | RAD ---
CHEST 1 VIEW: Date: 10/10/2019 HISTORY: Hypertension crisis. COMPARISON: 10/04/2019. FINDINGS: Stable metal foreign bodies overlying the neck. Heart size is normal. The lungs are clear. No conflue nt pneumonia, overt edema, or pleural effusion. IMPRESSION: No acute intrathoracic disease. POS: [facility]
[2019-10-10 13:32] LABS: Troponin I Less than 0.010 ng/mL (< 0.028)
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
[2019-10-10] MEDS ORDERED: LIDOCAINE HCL 4% Topical Sol (4 ML SOLN.PK.G.) TP SCH (21:00)
[2019-10-10] MEDS: Senokot S 8.6-50 MG TAB PO SCH (21:59)
[2019-10-10] MEDS: Lidocaine 4% Topical Sol 50 ML BOT TOP SCH (22:02)
[2019-10-10] MEDS ORDERED: Metoclopramide HCl 10 MG TAB PO SCH (22:45)
[2019-10-10] MEDS ORDERED: traZODone HCl 50 MG TAB PO SCH (22:45)
[2019-10-11 04:51] LABS: #Eosinphils 0.2 thou/uL (0.0-0.7); #Lymphocytes 2.3 thou/uL (1.20-3.40); #Monocytes 0.5 thou/uL (0.11-0.59); #Neutrophils 2.7 thou/uL (1.40-6.50); %Eosinophils 3.3 % (0.0-10.0); %Lymphocytes 40.5 % (21.0-51.0); %Neutrophils 48.2 % (42.0-75.0); Hemoglobin 12.8 g/dL (14.0-18.0); Mean Corpuscular HGB CONC 32.1 g/dL (32.0-36.0); Mean Corpuscular Hemoglobin 29.1 pg (27.0-31.0); Mean Corpuscular Volume 90.9 fL (78.0-98.0); Mean Platelet Volume 8.3 fL (7.4-10.4); Platelet Count 237 thou/uL (130-400); Red Blood Cell (RBC) Count 4.39 mill/uL (4.70-6.10); White Blood Cell (WBC) Count 5.7 thou/uL (4.8-10.8)
[2019-10-11 05:10] LABS: Anion Gap 13 mmol/L (10-20); BUN (Urea Nitrogen) 9 mg/dL (8.9-20.6); Calc. Creatinine Clearance 274 mL/min (70-130); Carbon Dioxide 21 mmol/L (22-29); Chloride 107 mmol/L (98-107); Estimated GFR-MDRD Greater than 90; Glucose 84 mg/dL (70-105); Sodium 137 mmol/L (136-145)
--- NOTE | 2019-10-11 07:11 | PDOC.HOSPP ---
- Subjective Encounter Date: 10/11/19 Encounter Time: 09:30 Subjective: Patient with persistent right lower sternal pain, pressure and "bubbling" sensation, been chronic now for months. Had Cardiac w/u and GI workup in [place] where his PCP is. Never had a GB U/S. No other complaints today. BP much better in the hospital than at home. - Objective Vital Signs & Weight: Vital Signs (12 hours) Temp Pulse Resp BP Pulse Ox 10/11/19 03:00 98.9 F 77 18 130/84 100 10/10/19 23:00 99.1 F 72 18 147/87 H 100 Weight Weight 256 lb 4.8 oz I&O: 10/10/19 10/11/19 10/12/19 06:59 06:59 06:59 Intake Total 1235 Output Total 550 Balance 685 Result Diagrams: 10/11/19 04:26 10/11/19 04:26 Hospitalist ROS - Review of Systems Constitutional: denies: fever, chills Respiratory: denies: cough, shortness of breath Cardiovascular: reports: chest pain. denies: palpitations Gastrointestinal: denies: nausea, vomiting, abdominal pain - Medication Medications: Active Medications Generic Name Dose Route Start Last Admin Trade Name Freq PRN Reason Stop Dose Admin Enoxaparin Sodium 40 mg 10/10/19 09:00 10/10/19 11:57 Lovenox SC 40 mg 0900 JULIO Administration Hydralazine HCl 10 mg 10/10/19 06:25 10/10/19 11:57 Apresoline SLOW IVP 10 mg Q4H PRN Administration SBP Greater Than 180 Levofloxacin 750 mg/ Device 150 mls @ 100 mls/hr 10/10/19 13:00 10/10/19 14: 04 IVPB 150 mls 1300 JULIO Administration Lidocaine HCl 1 ml 10/10/19 21:00 10/10/19 22:02 Xylocaine 4% Topical Adriana TOP 1 ml BID JULIO Administration Senna/Docusate Sodium 1 tab 10/10/19 21:00 10/10/19 21:59 Senokot S PO 1 tab BID JULIO Administration - Exam General Appearance: NAD, awake alert ENT: moist mucosa Heart: RRR, no murmur, no gallops, no rubs Heart - other findings: palpation lower sternum reproduces the pain Respiratory: CTAB, no wheezes, no rales, no ronchi Gastrointestinal: soft, non-tender, non-distended, normal bowel sounds Psychiatric: normal affect, normal behavior, A&O x 3 Hosp A/P (1) Chest pain Code(s): R07.9 - CHEST PAIN, UNSPECIFIED Status: Chronic (2) Hypertensive urgency Code(s): I16.0 - HYPERTENSIVE URGENCY Status: Resolved (3) UTI (urinary tract infection) Status: Acute Qualifiers: Urinary tract infection type: catheter-associated UTI Plan: present on admission, being treated (4) HTN (hypertension) Code(s): I10 - ESSENTIAL (PRIMARY) HYPERTENSION Status: Chronic (5) Quadriplegia Code(s): G82.50 - QUADRIPLEGIA, UNSPECIFIED Status: Chronic - Plan Blood pressure has normalized today. Urine culture negative on home Levaquin for recent UTI, switch back to po Chest pain atypical, negative cardiac markers, recent negative stress test, likely musculoskeletal. Will check U/S gallbladder and then likely d/c home. DVT Proph: Lovenox
[2019-10-11] MEDS: Enoxaparin Sodium 40 MG/0.4 ML SYRINGE SC SCH (08:19)
[2019-10-11] MEDS: Lidocaine 4% Topical Sol 50 ML BOT TOP SCH (08:22)
[2019-10-11] MEDS: Senokot S 8.6-50 MG TAB PO SCH (08:25)
[2019-10-11] MEDS ORDERED: Polyethylene Glycol 3350 17 GM Packet PO SCH (09:00)
[2019-10-11] MEDS ORDERED: Amlodipine 10 MG TAB PO SCH (09:00)
[2019-10-11] MEDS ORDERED: Lisinopril 10 MG TAB PO SCH (12:00)
[2019-10-11] MEDS ORDERED: METOCLOPRAMIDE HCL 5 MG PO SCH (15:00)
[2019-10-11] MEDS ORDERED: Metoclopramide HCl 10 MG TAB PO SCH (15:00)
[2019-10-11 15:11] VITALS: BP 139/96; TEMP 99.2
--- NOTE | 2019-10-11 15:29 | ULT ---
US Gallbladder RUQ: 10/11/2019 9:52 AM CLINICAL HISTORY: Right upper quadrant abdominal pain. STUDY: Limited right upper quadrant ultrasound of abdomen. COMPARISON: None. FINDINGS: Liver: Size: Normal. Echogenicity: Normal. Contour: Smooth. Mass: None. Bile ducts: No intrahepatic or extrahepatic biliary dilatation. Common bile duct measures 5 mm. Gallbladder: Normal. Pancreas: Head, body, and tail appear normal. Right kidney: No pelvicalyceal dilatation. Right kidney measuring 10.6 cm in length. IMPRESSION: Unremarkable exam.
[2019-10-11] MEDS ORDERED: traZODone HCl 50 MG TAB PO SCH (21:00)
[2019-10-11] MEDS ORDERED: Baclofen 10 MG TAB PO SCH (21:00)
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
[2019-10-12] MEDS ORDERED: Lisinopril 10 MG TAB PO SCH (09:00)
== END 2019-10-11 18:39 | disposition home or self-care (01) ==
LOC: ERS 03:29 → 2SE 06:28
PROVIDERS: ADMIT Internal Medicine; ATTEND Internal Medicine
DX: R07.89 Other chest pain (principal); I16.0 Hypertensive urgency; I10 Essential (primary) hypertension; N39.0 Urinary tract infection, site not specified; G82.50 Quadriplegia, unspecified; E78.5 Hyperlipidemia, unspecified; Z79.899 Other long term (current) drug therapy
CPT/HCPCS: 36415; 71045; 76705; 80048; 80053; 84484; 85025; 85379; 87077; 87086; 87186; 93005; 96372; 96374; 96375; G0378; J0360; J1650; J1885; J1956

== ENCOUNTER 2020-06-27 16:48 | Inpatient (IN) | payer OTHER ==
[~2020-06-27 16:48] MED LIST: Iopamidol-370 76% 500 ML 1 ML ONE
--- NOTE | 2020-06-27 17:41 | RAD ---
XR Chest 1 View Portable History: Epigastric pain Comparison: Radiograph October 10, 2019 Findings: Abnormal left upper lobe and lingular airspace opacities. No pneumothorax. Heart size mildl y enlarged. Radiopaque debris projects over the neck. Impression: Abnormal left upper lobe and lingular airspace opacities concerning for infection. Follow -up recommended.
[2020-06-27] MEDS ORDERED: Morphine 4 MG/ML VIAL ONE (18:19)
[2020-06-27 18:20] LABS: #Eosinphils 0.1 thou/uL (0.0-0.7); #Lymphocytes 1.6 thou/uL (1.20-3.40); #Neutrophils 7.6 thou/uL (1.40-6.50); %Basophils 0.3 % (0.0-1.0); %Eosinophils 1.2 % (0.0-10.0); %Lymphocytes 15.2 % (21.0-51.0); %Neutrophils 73.4 % (42.0-75.0); Hemoglobin 16.7 g/dL (14.0-18.0); Mean Corpuscular HGB CONC 32.8 g/dL (32.0-36.0); Mean Corpuscular Hemoglobin 30.1 pg (27.0-31.0); Mean Corpuscular Volume 91.8 fL (78.0-98.0); Platelet Count 328 thou/uL (130-400); RBC Distribution Width 12.9 % (11.5-14.5); Red Blood Cell (RBC) Count 5.56 mill/uL (4.70-6.10); White Blood Cell (WBC) Count 10.3 thou/uL (4.8-10.8)
[2020-06-27] MEDS ORDERED: Ondansetron PF 4 MG/2 ML Vial ONE (18:20)
[2020-06-27] MEDS ORDERED: Acetaminophen 500 MG TAB ONE (18:20)
[2020-06-27] MEDS ORDERED: Famotidine/PF 20 mg/2ml Vial ONE (18:20)
[2020-06-27 18:49] LABS: ALT (SGPT) 14 U/L (8-55); AST (SGOT) 19 U/L (5-34); Albumin 4.2 g/dL (3.5-5.0); Alkaline Phosphatase 157 U/L (40-110); Anion Gap 18 mmol/L (10-20); BUN (Urea Nitrogen) 10 mg/dL (8.9-20.6); Bilirubin, Total 0.8 mg/dL (0.2-1.2); Calc. Creatinine Clearance 0 mL/min (70-130); Calcium 9.8 mg/dL (7.8-10.44); Carbon Dioxide 24 mmol/L (22-29); Chloride 102 mmol/L (98-107); Estimated GFR-MDRD Greater than 90; Globulin 4.3 g/dL (2.4-3.5); Glucose 115 mg/dL (70-105); Lipase 5 U/L (8-78); Potassium 4.1 mmol/L (3.5-5.1); Protein, Total 8.5 g/dL (6.0-8.3); Sodium 140 mmol/L (136-145)
[2020-06-27] MEDS ORDERED: Aspirin Chewable 81 MG TAB ONE (18:51)
[2020-06-27 19:00] LABS: Bacteria/HPF 3+ HPF (None Seen); Bilirubin Negative (Negative); Blood, Urine 1+ (Negative); Clarity Turbid (Clear); Glucose, Urine (Dipstick) Normal (Negative); Ketone, Urine Negative (Negative); Leukocyte 250 Leu/uL (Negative); Nitrite 2+ (Negative); Protein, Urine (Dipstick) 50 mg/dL (Neg-Trace); RBC/HPF 0-3 HPF (0-3); Squamous Epithelial 0-3 HPF (0-3); Triple Phosphate Crystal Rare HPF (None Seen); Urobilinogen Normal mg/dL (Less than 2); pH, Urine 8.5 (5.0-9.0)
[2020-06-27 19:07] LABS: CKMB 5.8 ng/mL (0-6.6)
[2020-06-27] MEDS ORDERED: Cefepime 2 GM VIAL ONE (19:31)
--- NOTE | 2020-06-27 19:49 | CT ---
CT abdomen and pelvis with IV contrast HISTORY: Left lower quadrant pain. COMPARISON: 10/04/2019. FINDINGS: Mild nonspecific parenchymal opacity at the left lateral anterior lung base may represent m ild inflammation or atelectasis. Solid organs of the abdomen are intact. Summers catheter and small amount of gas are present within the urinary bladder. Large amount of stool is again demonstrated within the sigmoid colon. No evidence of bowel obstructio n. Subtle fat stranding is present within the mesentery of the left lower quadrant, not arising from adj acent bowel. It extends obliquely to the right lower quadrant. No free air or free fluid. There is subtle stranding in the fat around the left kidney. Mild, symmetric prominence of the ureter s without point of obstruction evident. Chronic osseous hypertrophy of the lower facets of the lumbar spine and degenerative changes are agai n demonstrated. Degenerative changes and heterotopic ossification about the right hip stable. IMPRESSION : Tawny mild inflammatory fat stranding in the lower mesentery, not arising from the bowel which does no t appear inflamed. Cause for mild mesenteric panniculitis is not evident. No evidence of complication. Constipation. Subtle inflamed appearance in the fat immediately surrounding the left kidney. Clinical correlation r egarding other signs and symptoms of left pyelonephritis is required. Mild symmetric ureteral distention may be related to chronic reflux.
[2020-06-27 21:01] LABS: Troponin I 2.109 ng/mL (< 0.028)
[2020-06-27] MEDS ORDERED: Enoxaparin Sodium 100 MG/ML SYRINGE ONE (21:04)
[2020-06-27 21:32] LABS: Lactic Acid 2.8 mmol/L (0.5-2.2)
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
[2020-06-27] MEDS: Sodium Chloride 0.9% 1,000 ML IV SCH (23:34)
[2020-06-27 23:41] LABS: Troponin I 2.625 ng/mL (< 0.028)
[2020-06-28] MEDS ORDERED: Acetaminophen 325 MG TAB ONE ×2 (01:47→06:30)
[2020-06-28 03:06] LABS: Troponin I 2.824 ng/mL (< 0.028)
--- NOTE | 2020-06-28 06:18 | PDOC.BPN ---
- Brief Progress Note Encounter Date: 06/28/20 Encounter Time: 03:20 Patient seen to have bloodstained urine. He states he has had this before. No clot. He was given full dose Lovenox for elevated troponin. Troponin has been trended up to 2.8. I cannot anticoagulate at this time due to the hematuria. Cardiology consult is pending. Echocardiogram is ordered.
[2020-06-28 06:28] LABS: Hemoglobin 13.4 g/dL (14.0-18.0); Mean Corpuscular HGB CONC 32.6 g/dL (32.0-36.0); Mean Corpuscular Volume 91.9 fL (78.0-98.0); Mean Platelet Volume 9.3 fL (7.4-10.4); Platelet Count 234 thou/uL (130-400); RBC Distribution Width 12.9 % (11.5-14.5); Red Blood Cell (RBC) Count 4.45 mill/uL (4.70-6.10); White Blood Cell (WBC) Count 22.5 thou/uL (4.8-10.8)
[2020-06-28 06:34] LABS: Band 7 % (5-11); Eosinophils 1 % (0-10); Lymphocytes 10 % (21-51); MDiff Complete? YES; Monocytes 8 % (0-10); Neutrophil 74 % (42-75); RBC Morphology Normal
[2020-06-28] MEDS: Acetaminophen 325 MG TAB PO PRN (06:34)
[2020-06-28 08:06] LABS: Anion Gap 13 mmol/L (10-20); BUN (Urea Nitrogen) 10 mg/dL (8.9-20.6); Calc. Creatinine Clearance 0 mL/min (70-130); Calcium 8.1 mg/dL (7.8-10.44); Carbon Dioxide 22 mmol/L (22-29); Chloride 110 mmol/L (98-107); Estimated GFR-MDRD Greater than 90; Glucose 129 mg/dL (70-105); Potassium 4.5 mmol/L (3.5-5.1); Sodium 140 mmol/L (136-145)
[2020-06-28] MEDS ORDERED: Aspirin Chewable 81 MG TAB ONE (09:06)
[2020-06-28] MEDS ORDERED: Enoxaparin Sodium 40 MG/0.4 ML SYRINGE ONE (09:06)
[2020-06-28] MEDS ORDERED: metroNIDAZOLE 500 MG/100 ML BAG ONE (09:08)
[2020-06-28] MEDS: metroNIDAZOLE 500 MG in Premix Bag 1 BAG IVPB SCH ×4 (09:18→23:43)
[2020-06-28] MEDS: Enoxaparin Sodium 40 MG/0.4 ML SYRINGE SC SCH (09:19)
[2020-06-28] MEDS: Aspirin 81 mg Enteric Coated Tablet PO SCH (09:19)
[2020-06-28] MEDS: Sodium Chloride 0.9% 1,000 ML IV SCH ×3 (10:30→23:44)
[2020-06-28 11:00] LABS: SARS-CoV-2 MS2 Positive; SARS-CoV-2 N Gene Negative; SARS-CoV-2 S Gene Negative; SARS-CoV-2 by NAA Not Detected (NotDetected); SARS-CoV-2 orf1ab Negative
[2020-06-28] MEDS: Bisacodyl 10 MG SUPP PR PRN (13:16)
[2020-06-28] MEDS ORDERED: MEROPENEM 1 GM/50 ML 1 GM in Premix Bag 1 BAG IVPB SCH (14:30)
[2020-06-28 15:24] LABS: #Eosinphils 0.1 thou/uL (0.0-0.7); #Lymphocytes 1.7 thou/uL (1.20-3.40); #Monocytes 0.7 thou/uL (0.11-0.59); #Neutrophils 8.6 thou/uL (1.40-6.50); %Basophils 0.3 % (0.0-1.0); %Lymphocytes 15.4 % (21.0-51.0); %Monocytes 5.8 % (0.0-10.0); %Neutrophils 77.4 % (42.0-75.0); Mean Corpuscular HGB CONC 32.5 g/dL (32.0-36.0); Mean Corpuscular Hemoglobin 30.5 pg (27.0-31.0); Mean Corpuscular Volume 93.8 fL (78.0-98.0); Mean Platelet Volume 8.3 fL (7.4-10.4); Platelet Count 223 thou/uL (130-400); RBC Distribution Width 12.9 % (11.5-14.5); Red Blood Cell (RBC) Count 3.94 mill/uL (4.70-6.10); White Blood Cell (WBC) Count 11.2 thou/uL (4.8-10.8)
[2020-06-28 15:40] LABS: Lactic Acid 1.6 mmol/L (0.5-2.2)
[2020-06-28] MEDS ORDERED: Sodium Chloride 0.9% 500 ML IV SCH (15:45)
[2020-06-28 15:51] LABS: ALT (SGPT) 9 U/L (8-55); AST (SGOT) 22 U/L (5-34); Alkaline Phosphatase 99 U/L (40-110); Anion Gap 11 mmol/L (10-20); BUN (Urea Nitrogen) 11 mg/dL (8.9-20.6); Bilirubin, Total 0.7 mg/dL (0.2-1.2); Calc. Creatinine Clearance 0 mL/min (70-130); Calcium 7.8 mg/dL (7.8-10.44); Carbon Dioxide 21 mmol/L (22-29); Chloride 111 mmol/L (98-107); Estimated GFR-MDRD Greater than 90; Globulin 2.8 g/dL (2.4-3.5); Glucose 137 mg/dL (70-105); Potassium 4.2 mmol/L (3.5-5.1); Protein, Total 5.8 g/dL (6.0-8.3); Sodium 139 mmol/L (136-145)
--- NOTE | 2020-06-28 15:52 | PDOC.HOSPP ---
- Subjective Encounter Date: 06/28/20 Encounter Time: 15:51 Subjective: Patient seen for follow-up regarding sepsis. He denies chest pain. He denies fevers or chills. - Objective Result Diagrams: 06/28/20 14:55 06/28/20 14:55 Additional Labs: Labs and MAR reviewed by me EKG Reviewed by me: Yes (Normal sinus rhythm on telemetry) Hospitalist ROS - Review of Systems Constitutional: reports: weakness Cardiovascular: denies: chest pain, palpitations, orthopnea, paroxysmal noc. dyspnea, edema, light headedness Gastrointestinal: reports: diarrhea. denies: nausea, vomiting, abdominal pain, constipation, melena, hematochezia Genitourinary: reports: hematuria. denies: dysuria, frequency, incontinence, retention Skin: denies: rash, lesions, yolette, bruising - Medication Medications: Active Medications Generic Name Dose Route Start Last Admin Trade Name Freq PRN Reason Stop Dose Admin Acetaminophen 650 mg 06/27/20 22:17 06/28/20 06:34 Acetaminophen 325 Mg Tab PO 650 mg Q4H PRN Administration Headache/Fever/Mild Pain (1-3) Aspirin 81 mg 06/28/20 09:00 06/28/20 09:19 Aspirin 81 Mg Enteric Coated Tablet PO 81 mg DAILY JULIO Administration Bisacodyl 10 mg 06/27/20 22:17 06/28/20 13:16 Bisacodyl 10 Mg Supp MO 10 mg DAILYPRN PRN Administration Constipation Enoxaparin Sodium 40 mg 06/28/20 09:00 06/28/20 09:19 Enoxaparin Sodium 40 Mg/0.4 Ml Syringe SC 40 mg 0900 JULIO Administration Sodium Chloride 1,000 mls @ 126 mls/hr 06/27/20 22:30 06/28/20 15:28 Normal Saline 0.9% IV 1,000 mls .[id number] JULIO Administration Metronidazole 500 mg/ Device 100 mls @ 100 mls/hr 06/27/20 23:00 06/28/20 09:18 IVPB 100 mls 0700,1500,2300 JULIO Administration - Exam General Appearance: awake alert Eye: anicteric sclera ENT: moist mucosa Neck: supple Heart: RRR Respiratory: CTAB Gastrointestinal: soft, non-tender Skin: no rashes Psychiatric: normal affect, normal behavior Hosp A/P - Plan -Assessment (1) Sepsis Code(s): A41.9 - SEPSIS, UNSPECIFIED ORGANISM Status: Acute (2) Pneumonia Code(s): J18.9 - PNEUMONIA, UNSPECIFIED ORGANISM Status: Acute (3) UTI (urinary tract infection) Status: Acute Qualifiers: Urinary tract infection type: catheter-associated UTI (4) Elevated troponin Code(s): R77.8 - OTHER SPECIFIED ABNORMALITIES OF PLASMA PROTEINS Status: Acute (5) HTN (hypertension) Code(s): I10 - ESSENTIAL (PRIMARY) HYPERTENSION Status: Chronic (6) Quadriplegia Code(s): G82.50 - QUADRIPLEGIA, UNSPECIFIED Status: Chronic (7) Functional constipation Status: Acute - Plan Patient was hypotensive earlier today. He reports that he is blood pressure usually is low, especially when he has diarrhea. Discontinue levofloxacin, start meropenem in case the urinary tract infection is secondary to resistant organism. Transfer patient to telemetry. Recheck labs, including troponin I and lactate. Follow blood cultures as well as urine culture. Evaded troponin likely secondary to sepsis and demand ischemia. Cardiology consult pending. Continue aspirin.
[2020-06-28 15:56] LABS: Critical Call Chem Troponin I RESULT DECREASING; Troponin I 0.792 ng/mL (< 0.028)
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
[2020-06-28 19:24] VITALS: BMI 35.8
[2020-06-28] MEDS: MEROPENEM 1 GM/50 ML 1 GM in Premix Bag 1 BAG IVPB SCH (23:43)
[2020-06-29] MEDS: Baclofen 10 MG TAB PO PRN (00:58)
[2020-06-29] MEDS: MEROPENEM 1 GM/50 ML 1 GM in Premix Bag 1 BAG IVPB SCH ×3 (05:05→22:27)
[2020-06-29] MEDS: metroNIDAZOLE 500 MG in Premix Bag 1 BAG IVPB SCH (06:07)
[2020-06-29] MEDS ORDERED: Prevnar 13-Val Conj/PF 0.5 ML SYRINGE IM ONE (09:00)
[2020-06-29] MEDS: Enoxaparin Sodium 40 MG/0.4 ML SYRINGE SC SCH (09:09)
[2020-06-29] MEDS: Aspirin 81 mg Enteric Coated Tablet PO SCH (09:09)
[2020-06-29] MEDS: Sodium Chloride 0.9% 1,000 ML IV SCH ×3 (09:10→17:40)
[2020-06-29] MEDS: Acetaminophen 325 MG TAB PO PRN (13:25)
--- NOTE | 2020-06-29 14:34 | PDOC.HOSPP ---
- Subjective Encounter Date: 06/29/20 Encounter Time: 09:00 Subjective: pt up in bed no complains. - Objective Vital Signs & Weight: Vital Signs (12 hours) Temp Pulse Resp BP Pulse Ox 06/29/20 11:27 99.8 F H 83 12 157/95 H 06/29/20 07:00 98.8 F 88 12 125/79 97 06/29/20 04:00 99.1 F 95 20 121/60 100 Weight Admit Weight 257 lb 1.6 oz Weight 257 lb I&O: 06/28/20 06/29/20 06/30/20 06:59 06:59 06:59 Intake Total 1787 Output Total 825 Balance 962 Result Diagrams: 06/28/20 14:55 06/28/20 14:55 Hospitalist ROS - Review of Systems Cardiovascular: denies: chest pain, palpitations, orthopnea, paroxysmal noc. dyspnea, edema, light headedness, other Gastrointestinal: denies: nausea, vomiting, abdominal pain, diarrhea, constipation, melena, hematochezia, other Genitourinary: denies: dysuria, frequency, incontinence, hematuria, retention, other - Medication Medications: Active Medications Generic Name Dose Route Start Last Admin Trade Name Freq PRN Reason Stop Dose Admin Acetaminophen 650 mg 06/27/20 22:17 06/29/20 13:25 Acetaminophen 325 Mg Tab PO 650 mg Q4H PRN Administration Headache/Fever/Mild Pain (1-3) Aspirin 81 mg 06/28/20 09:00 06/29/20 09:09 Aspirin 81 Mg Enteric Coated Tablet PO 81 mg DAILY JULIO Administration Baclofen 10 mg 06/29/20 00:45 06/29/20 00:58 Baclofen 10 Mg Tab PO 10 mg BIDPRN PRN Administration Pain Bisacodyl 10 mg 06/27/20 22:17 06/28/20 13:16 Bisacodyl 10 Mg Supp MD 10 mg DAILYPRN PRN Administration Constipation Enoxaparin Sodium 40 mg 06/28/20 09:00 06/29/20 09:09 Enoxaparin Sodium 40 Mg/0.4 Ml Syringe SC 40 mg 0900 JULIO Administration Sodium Chloride 1,000 mls @ 126 mls/hr 06/27/20 22:30 06/29/20 09:10 Normal Saline 0.9% IV 1,000 mls .Q7H57M JULIO Administration Metronidazole 500 mg/ Device 100 mls @ 100 mls/hr 06/27/20 23:00 06/29/20 06:07 IVPB 100 mls 0700,1500,2300 JULIO Administration Meropenem 1 gm/ Device 50 mls @ 100 mls/hr 06/28/20 22:00 06/29/20 13:24 IVPB 50 mls Q8HR JULIO Administration - Exam Heart: negative: RRR, no murmur, no gallops, no rubs, normal peripheral pulses, irregular, diminshed peripheral pulses, murmur present, II/IV, III/IV Respiratory: negative: CTAB, no wheezes, no rales, no ronchi, normal chest expansion, no tachypnea, normal percussion, rales, rhonchi, tachypneic, wheezes Gastrointestinal: negative: soft, non-tender, non-distended, normal bowel sounds, no palpable masses, no hepatomegaly, no splenomegaly, no bruit, no guarding, no rigidity, tender to palpation, distended, diminished bowl sounds, voluntary guarding Extremities: 2+ LE edema Hosp A/P (1) Elevated troponin Code(s): R77.8 - OTHER SPECIFIED ABNORMALITIES OF PLASMA PROTEINS Status: Ac alis (2) Pneumonia Code(s): J18.9 - PNEUMONIA, UNSPECIFIED ORGANISM Status: Acute (3) Sepsis Code(s): A41.9 - SEPSIS, UNSPECIFIED ORGANISM Status: Acute (4) UTI (urinary tract infection) Status: Acute Qualifiers: Urinary tract infection type: catheter-associated UTI (5) HTN (hypertension) Code(s): I10 - ESSENTIAL (PRIMARY) HYPERTENSION Status: Chronic (6) Quadriplegia Code(s): G82.50 - QUADRIPLEGIA, UNSPECIFIED Status: Chronic - Plan will continue meropenem. pt had a very large bm, his ct indicated constipation. pt's vitals stable. elevated troponin possible demand related appreciate cardiology's input. will stop flagy.
[2020-06-29] MEDS ORDERED: traZODone HCl 50 MG TAB PO PRN (14:36)
[2020-06-29] MEDS ORDERED: Lisinopril 20 MG TAB PO PRN (14:36)
[2020-06-29] MEDS: Bisacodyl 10 MG SUPP PR PRN (15:55)
[2020-06-29] MEDS: Polyethylene Glycol 3350 17 GM Packet PO SCH (16:08)
[2020-06-30] MEDS: Sodium Chloride 0.9% 1,000 ML IV SCH ×2 (01:51→16:32)
[2020-06-30] MEDS: MEROPENEM 1 GM/50 ML 1 GM in Premix Bag 1 BAG IVPB SCH ×3 (05:26→21:36)
[2020-06-30] MEDS: Enoxaparin Sodium 40 MG/0.4 ML SYRINGE SC SCH (08:25)
[2020-06-30] MEDS: Aspirin 81 mg Enteric Coated Tablet PO SCH (08:26)
[2020-06-30] MEDS: Acetaminophen 325 MG TAB PO PRN (08:36)
[2020-06-30] MEDS ORDERED: Communication Order-Pharmacy FS SCH (09:45)
--- NOTE | 2020-06-30 11:01 | NM ---
Radionucleotide stress only myocardial perfusion scan with CT attenuation correction and SPECT imagin g Left ventricular wall motion evaluation and ejection fraction HISTORY: Chest pain. FINDINGS: Lexiscan protocol. Homogeneous uptake of radiotracer throughout the left ventricular myocar dium. No focal perfusion defect. QGS analysis of gated SPECT images shows no focal wall motion abnormalities. Ejection fraction calcul ated at 56%. IMPRESSION : No evidence of ischemia. Normal LVEF.
[2020-06-30] MEDS: Amlodipine 5 MG TAB PO PRN (12:12)
[2020-06-30] MEDS: Bisacodyl 10 MG SUPP PR PRN (13:38)
[2020-06-30] MEDS ORDERED: Regadenoson 0.4 MG/5 ML SYRINGE ONE (14:09)
--- NOTE | 2020-06-30 15:07 | PDOC.HOSPP ---
- Subjective Encounter Date: 06/30/20 Encounter Time: 15:07 Subjective: pt up in bed no complains. - Objective Vital Signs & Weight: Vital Signs (12 hours) Temp Pulse Resp BP Pulse Ox 06/30/20 12:07 98.6 F 88 18 187/138 H 98 06/30/20 08:30 100 06/30/20 08:20 99.0 F 83 16 179/119 H 100 06/30/20 03:33 98.8 F 86 23 H 162/99 H 97 Weight Admit Weight 257 lb 1.6 oz Weight 257 lb I&O: 06/29/20 06/30/20 07/01/20 06:59 06:59 06:59 Intake Total 1787 3812 Output Total 825 1425 Balance 962 1357 Result Diagrams: 06/28/20 14:55 06/28/20 14:55 Hospitalist ROS - Review of Systems Cardiovascular: denies: chest pain, palpitations, orthopnea, paroxysmal noc. dyspnea, edema, light headedness, other Gastrointestinal: denies: nausea, vomiting, abdominal pain, diarrhea, constipation, melena, hematochezia, other Genitourinary: denies: dysuria, frequency, incontinence, hematuria, retention, other - Medication Medications: Active Medications Generic Name Dose Route Start Last Admin Trade Name Freq PRN Reason Stop Dose Admin Acetaminophen 650 mg 06/27/20 22:17 06/30/20 08:36 Acetaminophen 325 Mg Tab PO 650 mg Q4H PRN Administration Headache/Fever/Mild Pain (1-3) Amlodipine Besylate 5 mg 06/29/20 14:36 06/30/20 12:12 Amlodipine 5 Mg Tab PO 5 mg DAILY PRN Administration Blood Pressure Aspirin 81 mg 06/28/20 09:00 06/30/20 08:26 Aspirin 81 Mg Enteric Coated Tablet PO 81 mg DAILY JULIO Administration Baclofen 10 mg 06/29/20 00:45 06/29/20 00:58 Baclofen 10 Mg Tab PO 10 mg BIDPRN PRN Administration Pain Bisacodyl 10 mg 06/27/20 22:17 06/30/20 13:38 Bisacodyl 10 Mg Supp [place] 10 mg DAILYPRN PRN Administration Constipation Enoxaparin Sodium 40 mg 06/28/20 09:00 06/30/20 08:25 Enoxaparin Sodium 40 Mg/0.4 Ml Syringe SC 07/02/20 22:00 40 mg 0900 JULIO Administration Meropenem 1 gm/ Device 50 mls @ 100 mls/hr 06/28/20 22:00 06/30/20 14:53 IVPB 50 mls Q8HR JULIO Administration Polyethylene Glycol 17 gm 06/29/20 14:45 06/29/20 16:08 Polyethylene Glycol 3350 17 Gm Packet PO Not Given Q2DAYS JULIO - Exam Heart: negative: RRR, no murmur, no gallops, no rubs, normal peripheral pulses, irregular, diminshed peripheral pulses, murmur present, II/IV, III/IV Respiratory: negative: CTAB, no wheezes, no rales, no ronchi, normal chest expansion, no tachypnea, normal percussion, rales, rhonchi, tachypneic, wheezes Gastrointestinal: negative: soft, non-tender, non-distended, normal bowel sounds, no palpable masses, no hepatomegaly, no splenomegaly, no bruit, no guarding, no rigidity, tender to palpation, distended, diminished bowl sounds, v oluntary guarding Extremities: 2+ LE edema Hosp A/P (1) Elevated troponin Code(s): R77.8 - OTHER SPECIFIED ABNORMALITIES OF PLASMA PROTEINS Status: Acute (2) Pneumonia Code(s): J18.9 - PNEUMONIA, UNSPECIFIED ORGANISM Status: Acute (3) Sepsis Code(s): A41.9 - SEPSIS, UNSPECIFIED ORGANISM Status: Acute (4) UTI (urinary tract infection) Status: Acute Qualifiers: Urinary tract infection type: catheter-associated UTI (5) HTN (hypertension) Code(s): I10 - ESSENTIAL (PRIMARY) HYPERTENSION Status: Chronic (6) Quadriplegia Code(s): G82.50 - QUADRIPLEGIA, UNSPECIFIED Status: Chronic - Plan will continue meropenem. pt had a very large bm, his ct indicated constipation. pt's vitals stable. elevated troponin possible demand related appreciate cardiology's input. will stop flagyl. 06/30 [place]urston changed, will continue abx for now. pt's stress test negative.
[2020-06-30] MEDS: Baclofen 10 MG TAB PO PRN (21:43)
[2020-07-01] MEDS: MEROPENEM 1 GM/50 ML 1 GM in Premix Bag 1 BAG IVPB SCH ×3 (05:32→21:44)
[2020-07-01] MEDS: Enoxaparin Sodium 40 MG/0.4 ML SYRINGE SC SCH (10:04)
[2020-07-01] MEDS: Aspirin 81 mg Enteric Coated Tablet PO SCH (10:04)
[2020-07-01] MEDS: Polyethylene Glycol 3350 17 GM Packet PO SCH (10:04)
[2020-07-01] MEDS: cefTRIAXone\\ROCEPHIN 1 GM in Sodium Chloride 0.9% 100 ML IVPB SCH (12:42)
--- NOTE | 2020-07-01 15:54 | PDOC.CPN ---
- Subjective Date: 07/01/20 Time: 12:30 Interval history: No new complaints. Patient denies any CP, SOB or GARNETT. - Review of Systems General: denies: fever/chills, weight/appetite/sleep changes, night sweats, fatigue Respiratory: reports: cough. denies: congestion, shortness of breath, exercise intolerance Cardiovascular: denies: chest pain, palpitation, edema, paroxysmal nocturnal dyspnea, orthopnea Gastrointestinal: denies: nausea, vomiting, diarrhea, constipation, abd pain, GI bleeding Musculoskeletal: denies: pain, tenderness, stiffness, swelling, arthritis/arthralgias Neurological: denies: numbness, syncope, seizure, weakness - Objective Allergies/Adverse Reactions: Allergies Allergy/AdvReac Type Severity Reaction Status Date / Time No Known Allergies Allergy Verified 07/16/19 10:58 Visit Medications: Current Medications Acetaminophen (Acetaminophen 325 Mg Tab) 650 mg PO Q4H PRN PRN Reason: Headache/Fever/Mild Pain (1-3) Last Admin: 06/30/20 08:36 Dose: 650 mg Documented by: Amlodipine Besylate (Amlodipine 5 Mg Tab) 5 mg PO DAILY PRN PRN Reason: Blood Pressure Last Admin: 06/30/20 12:12 Dose: 5 mg Documented by: Aspirin (Aspirin 81 Mg Enteric Coated Tablet) 81 mg PO DAILY JULIO Last Admin: 07/01/20 10:04 Dose: 81 mg Documented by: Baclofen (Baclofen 10 Mg Tab) 10 mg PO BIDPRN PRN PRN Reason: Pain Last Admin: 06/30/20 21:43 Dose: 10 mg Documented by: Bisacodyl (Bisacodyl 10 Mg Supp) 10 mg MS DAILYPRN PRN PRN Reason: Constipation Last Admin: 06/30/20 13:38 Dose: 10 mg Documented by: Enoxaparin Sodium (Enoxaparin Sodium 40 Mg/0.4 Ml Syringe) 40 mg SC 0900 JULIO Stop: 07/02/20 22:00 Last Admin: 07/01/20 10:04 Dose: 40 mg Documented by: Meropenem 1 gm/ Device 50 mls @ 100 mls/hr IVPB Q8HR JULIO Stop: 07/02/20 00:00 Last Admin: 07/01/20 15:28 Dose: 50 mls Documented by: Sodium Chloride (Normal Saline 0.9%) 1,000 mls @ 100 mls/hr IV .Q10H [facility] Ceftriaxone Sodium 1 gm/ (Sodium Chloride) 100 mls @ 200 mls/hr IVPB 1200 [facility] Last Admin: 07/01/20 12:42 Dose: 100 mls Documented by: Lisinopril (Lisinopril 20 Mg Tab) 20 mg PO DAILYPRN PRN PRN Reason: Blood Pressure Miscellaneous Information (Communication Order-Pharmacy ) 0 each FS ONE [facility] Stop: 07/03/20 21:00 Polyethylene Glycol (Polyethylene Glycol 3350 17 Gm Packet) 17 gm PO Q2DAYS [facility] Last Admin: 07/01/20 10:04 Dose: 17 gm Documented by: Trazodone HCl (Trazodone Hcl 50 Mg Tab) 50 mg PO HS PRN PRN Reason: Anxiety/Restlessness/Sleep Vital Signs & Weight: Vital Signs Temp Pulse Resp BP Pulse Ox 07/01/20 11:34 97.9 F 80 16 131/92 H 95 07/01/20 08:00 98.7 F 82 16 118/83 100 Admit Weight 257 lb 1.6 oz Weight 259 lb 3.2 oz - Physical Exam HEENT: mucus membranes moist, normocephaly Neck: supple neck Cardiac: regular rate and rhythm Lungs: clear to auscultation Neuro: grossly intact Abdomen: soft, non-tender Extremities: no edema Skin: clear Musculoskeletal: no pain - Labs Result Diagrams: 06/28/20 14:55 06/28/20 14:55 Troponin/CKMB CK-MB (CK-2) 5.8 ng/mL (0-6.6) 06/27/20 18:08 Troponin I 0.792 ng/mL (< 0.028) H* 06/28/20 14:55 - Assessment/Plan Assessment/Plan: 1. NSTEMI 2. PNA 3. HTN Recent normal stress and ECHO. Patient pain-free. BP adequately controlled. Continue Abx. No changes from my standpoint.
--- NOTE | 2020-07-01 15:58 | PDOC.HOSPP ---
- Subjective Encounter Date: 07/01/20 Encounter Time: 11:15 Subjective: pt up in bed no complains. - Objective Vital Signs & Weight: Vital Signs (12 hours) Temp Pulse Resp BP Pulse Ox 07/01/20 15:50 98.7 F 64 21 H 161/111 H 99 07/01/20 11:34 97.9 F 80 16 131/92 H 95 07/01/20 08:00 98.7 F 82 16 118/83 100 Weight Admit Weight 257 lb 1.6 oz Weight 259 lb 3.2 oz I&O: 06/30/20 07/01/20 07/02/20 06:59 06:59 06:59 Intake Total 3815 8815 240 Output Total 1425 2900 1200 Balance 9265 -725 -730 Result Diagrams: 06/28/20 14:55 06/28/20 14:55 Hospitalist ROS - Review of Systems Cardiovascular: denies: chest pain, palpitations, orthopnea, paroxysmal noc. dyspnea, edema, light headedness, other Gastrointestinal: denies: nausea, vomiting, abdominal pain, diarrhea, constipation, melena, hematochezia, other Genitourinary: denies: dysuria, frequency, incontinence, hematuria, retention, other - Medication Medications: Active Medications Generic Name Dose Route Start Last Admin Trade Name Freq PRN Reason Stop Dose Admin Acetaminophen 650 mg 06/27/20 22:17 06/30/20 08:36 Acetaminophen 325 Mg Tab PO 650 mg Q4H PRN Administration Headache/Fever/Mild Pain (1-3) Amlodipine Besylate 5 mg 06/29/20 14:36 06/30/20 12:12 Amlodipine 5 Mg Tab PO 5 mg DAILY PRN Administration Blood Pressure Aspirin 81 mg 06/28/20 09:00 07/01/20 10:04 Aspirin 81 Mg Enteric Coated Tablet PO 81 mg DAILY JULIO Administration Baclofen 10 mg 06/29/20 00:45 06/30/20 21:43 Baclofen 10 Mg Tab PO 10 mg BIDPRN PRN Administration Pain Bisacodyl 10 mg 06/27/20 22:17 06/30/20 13:38 Bisacodyl 10 Mg Supp [place] 10 mg DAILYPRN PRN Administration Constipation Enoxaparin Sodium 40 mg 06/28/20 09:00 07/01/20 10:04 Enoxaparin Sodium 40 Mg/0.4 Ml Syringe SC 07/02/20 22:00 40 mg 0900 JULIO Administration Meropenem 1 gm/ Device 50 mls @ 100 mls/hr 06/28/20 22:00 07/01/20 15:28 IVPB 07/02/20 00:00 50 mls Q8HR JULIO Administration Ceftriaxone Sodium 1 gm/ 100 mls @ 200 mls/hr 07/01/20 12:00 07/01/20 12:42 Sodium Chloride IVPB 100 mls 1200 JULIO Administration Polyethylene Glycol 17 gm 06/29/20 14:45 07/01/20 10:04 Polyethylene Glycol 3350 17 Gm Packet PO 17 gm Q2DAYS JULIO Administration - Exam Heart: negative: RRR, no murmur, no gallops, no rubs, normal peripheral pulses, irregular, diminshed peripheral pulses, murmur present, II/IV, III/IV Respiratory: negative: CTAB, no wheezes, no rales, no ronchi, normal chest expansion, no tachypnea, normal percussion, rales, rhonchi, tachypneic, wheezes Gastrointestinal: negative: soft, non-tender, non-distended, normal bowel sounds, no palpable masses, no hepatomegaly, no splenomegaly, no bruit, no guarding, no rigidity, tender to palpation, distended, diminished bowl sounds, voluntary guarding Extremities: 1+ LE edema Hosp A/P (1) Elevated troponin Code(s): R77.8 - OTHER SPECIFIED ABNORMALITIES OF PLASMA PROTEINS Status: Acute (2) Pneumonia Code(s): J18.9 - PNEUMONIA, UNSPECIFIED ORGANISM Status: Acute (3) Sepsis Code(s): A41.9 - SEPSIS, UNSPECIFIED ORGANISM Status: Acute (4) UTI (urinary tract infection) Status: Acute Qualifiers: Urinary tract infection type: catheter-associated UTI (5) HTN (hypertension) Code(s): I10 - ESSENTIAL (PRIMARY) HYPERTENSION Status: Chronic (6) Quadriplegia Code(s): G82.50 - QUADRIPLEGIA, UNSPECIFIED Status: Chronic - Plan will continue meropenem. pt had a very large bm, his ct indicated constipation. pt's vitals stable. elevated troponin possible demand related appreciate cardiology's input. will stop flagyl. 06/30 thurston changed, will continue abx for now. pt's stress test negative. 07/01 Asked micro lab to help speciate. will continue current abx. will add medications for better control.
[2020-07-01] MEDS ORDERED: Amlodipine 5 MG TAB PO SCH (16:15)
[2020-07-01] MEDS ORDERED: Lisinopril 20 MG TAB PO SCH (16:15)
[2020-07-01] MEDS: Bisacodyl 10 MG SUPP PR PRN (17:10)
[2020-07-02] MEDS: Aspirin 81 mg Enteric Coated Tablet PO SCH (08:17)
[2020-07-02] MEDS: Enoxaparin Sodium 40 MG/0.4 ML SYRINGE SC SCH (08:17)
[2020-07-02] MEDS: cefTRIAXone\\ROCEPHIN 1 GM in Sodium Chloride 0.9% 100 ML IVPB SCH (11:05)
[2020-07-02] MEDS ORDERED: Polyethylene Glycol 3350 17 GM Packet PO SCH (11:45)
--- NOTE | 2020-07-02 14:27 | PDOC.CPN ---
- Subjective Date: 07/02/20 Time: 12:45 Interval history: No overnight events. No issues. - Review of Systems General: denies: fever/chills, weight/appetite/sleep changes, night sweats, fatigue Respiratory: reports: cough. denies: congestion, shortness of breath, exercise intolerance Cardiovascular: denies: chest pain, palpitation, edema, paroxysmal nocturnal dyspnea, orthopnea Gastrointestinal: denies: nausea, vomiting, diarrhea, constipation, abd pain, GI bleeding Musculoskeletal: denies: pain, tenderness, stiffness, swelling, arthritis/arthralgias Neurological: denies: numbness, syncope, seizure, weakness - Objective Allergies/Adverse Reactions: Allergies Allergy/AdvReac Type Severity Reaction Status Date / Time No Known Allergies Allergy Verified 07/16/19 10:58 Visit Medications: Current Medications Acetaminophen (Acetaminophen 325 Mg Tab) 650 mg PO Q4H PRN PRN Reason: Headache/Fever/Mild Pain (1-3) Last Admin: 06/30/20 08:36 Dose: 650 mg Documented by: Amlodipine Besylate (Amlodipine 5 Mg Tab) 5 mg PO DAILY PRN PRN Reason: Blood Pressure Last Admin: 06/30/20 12:12 Dose: 5 mg Documented by: Aspirin (Aspirin 81 Mg Enteric Coated Tablet) 81 mg PO DAILY JULIO Last Admin: 07/02/20 08:17 Dose: 81 mg Documented by: Baclofen (Baclofen 10 Mg Tab) 10 mg PO BIDPRN PRN PRN Reason: Pain Last Admin: 06/30/20 21:43 Dose: 10 mg Documented by: Bisacodyl (Bisacodyl 10 Mg Supp) 10 mg SC DAILYPRN PRN PRN Reason: Constipation Last Admin: 07/01/20 17:10 Dose: 10 mg Documented by: Enoxaparin Sodium (Enoxaparin Sodium 40 Mg/0.4 Ml Syringe) 40 mg SC 0900 JULIO Stop: 07/02/20 22:00 Last Admin: 07/02/20 08:17 Dose: 40 mg Documented by: Sodium Chloride (Normal Saline 0.9%) 1,000 mls @ 100 mls/hr IV .Q10H JULIO Ceftriaxone Sodium 1 gm/ (Sodium Chloride) 100 mls @ 200 mls/hr IVPB 1200 JULIO Last Admin: 07/02/20 11:05 Dose: 100 mls Documented by: Lisinopril (Lisinopril 20 Mg Tab) 20 mg PO DAILYPRN PRN PRN Reason: Blood Pressure Miscellaneous Information (Communication Order-Pharmacy ) 0 each FS ONE JULIO Stop: 07/03/20 21:00 Polyethylene Glycol (Polyethylene Glycol 3350 17 Gm Packet) 17 gm PO DAILY JULIO Trazodone HCl (Trazodone Hcl 50 Mg Tab) 50 mg PO HS PRN PRN Reason: Anxiety/Restlessness/Sleep Vital Signs & Weight: Vital Signs Temp Pulse Resp BP Pulse Ox 07/02/20 11:23 97.3 F L 79 18 144/92 H 100 07/02/20 07:24 98.0 F 79 16 134/87 97 07/02/20 04:30 98.7 F 81 20 110/77 97 Admit Weight 257 lb 1.6 oz Weight 259 lb 3.2 oz - Physical Exam General: alert & oriented x3, appears well, no apparent distress HEENT: mucus membranes moist Neck: supple neck Cardiac: regular rate and rhythm Lungs: clear to auscultation, no wheezes Neuro: grossly intact Abdomen: soft - Labs Result Diagrams: 06/28/20 14:55 06/28/20 14:55 Troponin/CKMB CK-MB (CK-2) 5.8 ng/mL (0-6.6) 06/27/20 18:08 Troponin I 0.792 ng/mL (< 0.028) H* 06/28/20 14:55 - Assessment/Plan Assessment/Plan: 1. NSTEMI 2. PNA 3. HTN Patient with recent normal stress and ECHO. Currently scheduled NPO for tomorrow for potential angio by GGM. Will discuss cancellation with Dr. De Luna given normal stress. Probably home soon.
--- NOTE | 2020-07-02 16:21 | PDOC.HOSPP ---
- Subjective Encounter Date: 07/02/20 Encounter Time: 10:30 Subjective: pt up in bed no complains - Objective Vital Signs & Weight: Vital Signs (12 hours) Temp Pulse Resp BP Pulse Ox 07/02/20 15:31 98.0 F 77 18 121/80 97 07/02/20 11:23 97.3 F L 79 18 144/92 H 100 07/02/20 07:24 98.0 F 79 16 134/87 97 07/02/20 04:30 98.7 F 81 20 110/77 97 Weight Admit Weight 257 lb 1.6 oz Weight 259 lb 3.2 oz I&O: 07/01/20 07/02/20 07/03/20 06:59 06:59 06:59 Intake Total 2515 2880 Output Total 2900 3100 Balance -385 -220 Result Diagrams: 06/28/20 14:55 06/28/20 14:55 Hospitalist ROS - Review of Systems Respiratory: denies: cough, dry, shortness of breath, hemoptysis, SOB with excertion, pleuritic pain, sputum, wheezing, other Cardiovascular: denies: chest pain, palpitations, orthopnea, paroxysmal noc. dyspnea, edema, light headedness, other Gastrointestinal: denies: nausea, vomiting, abdominal pain, diarrhea, con stipation, melena, hematochezia, other - Medication Medications: Active Medications Generic Name Dose Route Start Last Admin Trade Name Freq PRN Reason Stop Dose Admin Acetaminophen 650 mg 06/27/20 22:17 06/30/20 08:36 Acetaminophen 325 Mg Tab PO 650 mg Q4H PRN Administration Headache/Fever/Mild Pain (1-3) Amlodipine Besylate 5 mg 06/29/20 14:36 06/30/20 12:12 Amlodipine 5 Mg Tab PO 5 mg DAILY PRN Administration Blood Pressure Aspirin 81 mg 06/28/20 09:00 07/02/20 08:17 Aspirin 81 Mg Enteric Coated Tablet PO 81 mg DAILY JULIO Administration Baclofen 10 mg 06/29/20 00:45 06/30/20 21:43 Baclofen 10 Mg Tab PO 10 mg BIDPRN PRN Administration Pain Bisacodyl 10 mg 06/27/20 22:17 07/01/20 17:10 Bisacodyl 10 Mg Supp [place] 10 mg DAILYPRN PRN Administration Constipation Enoxaparin Sodium 40 mg 06/28/20 09:00 07/02/20 08:17 Enoxaparin Sodium 40 Mg/0.4 Ml Syringe SC 07/02/20 22:00 40 mg 0900 JULIO Administration Ceftriaxone Sodium 1 gm/ 100 mls @ 200 mls/hr 07/01/20 12:00 07/02/20 11:05 Sodium Chloride IVPB 100 mls 1200 JULIO Administration - Exam Heart: negative: RRR, no murmur, no gallops, no rubs, normal peripheral pulses, irregular, diminshed peripheral pulses, murmur present, II/IV, III/IV Respiratory: negative: CTAB, no wheezes, no rales, no ronchi, normal chest expansion, no tachypnea, normal percussion, rales, rhonchi, tachypneic, wheezes Gastrointestinal: negative: soft, non-tender, non-distended, normal bowel sounds, no palpable masses, no hepatomegaly, no splenomegaly, no bruit, no guarding, no rigidity, tender to palpation, distended, diminished bowl sounds, voluntary guarding Extremities: 2+ LE edema Hosp A/P (1) Elevated troponin Code(s): R77.8 - OTHER SPECIFIED ABNORMALITIES OF PLASMA PROTEINS Status: Acute (2) Pneumonia Code(s): J18.9 - PNEUMONIA, UNSPECIFIED ORGANISM Status: Acute (3) Sepsis Code(s): A41.9 - SEPSIS, UNSPECIFIED ORGANISM Status: Acute (4) UTI (urinary tract infection) Status: Acute Qualifiers: Urinary tract infection type: catheter-associated UTI (5) HTN (hypertension) Code(s): I10 - ESSENTIAL (PRIMARY) HYPERTENSION Status: Chronic (6) Quadriplegia Code(s): G82.50 - QUADRIPLEGIA, UNSPECIFIED Status: Chronic - Plan will continue meropenem. pt had a very large bm, his ct indicated constipation. pt's vitals stable. elevated troponin possible demand related appreciate cardiology's input. will stop flagyl. 06/30 [place]urston changed, will continue abx for now. pt's stress test negative. 07/01 Asked micro lab to help speciate. will continue current abx. will add medications for better control. 07/02 per cardiology no cardiac cath will be done. will need to switch abx to oral once we get the final cx. possible discharge in am.
[2020-07-03] MEDS ORDERED: Heparin 10,000 UNITS/ 10 ML VIAL ONE (06:29)
[2020-07-03] MEDS ORDERED: Heparin 0 ML ONE (06:29)
[2020-07-03] MEDS ORDERED: Ciprofloxacin 500 MG TAB PO SCH ×2 (08:30→20:00)
[2020-07-03] MEDS ORDERED: Polyethylene Glycol 3350 17 GM Packet PO SCH (09:00)
[2020-07-03] MEDS: Sodium Chloride 0.9% 1,000 ML IV SCH ×2 (09:45→15:36)
[2020-07-03] MEDS: Aspirin 81 mg Enteric Coated Tablet PO SCH (09:46)
[2020-07-03] MEDS: Amlodipine 5 MG TAB PO PRN (12:48)
[2020-07-03 15:30] VITALS: BP 144/87; TEMP 97.5
--- NOTE | 2020-07-05 02:14 | DIS ---
DATE OF ADMISSION: 06/27/2020 DATE OF DISCHARGE: 07/03/2020 DISCHARGE DIAGNOSES: As of the following; 1. Sepsis most likely secondary to urinary tract infection, resolved. 2. Elevated troponins, NSTEMI, possible demand related type 2. 3. Urinary tract infection. 4. Hypertension. 5. Cardioplegia. 6. Constipation. 7. Pneumonia. HOSPITAL COURSE: The patient is a 40-year-old male who initially presented to the hospital with complaints of shortness of breath and abdominal pain. The patient at this time had abdominal pelvis CAT scan which indicated some stool and also indicated mesenteric panniculitis. At this time, patient had a large bowel movement after the CAT scan. He was treated with broad-spectrum antibiotics. He has chronic Summers catheter. His Summers catheter was changed while he was here. His Summers catheter grew cultures that was Proteus, Pseudomonas, and Serratia. Sensitivities, he was sensitive to ciprofloxacin. At this time, patient initially was on meropenem and was switched to ciprofloxacin. He continued to improve with the hospital stay. He had significant elevated troponins as high as 2.84. At this time, Cardiology did see the patient and ordered a stress test on this patient. Stress test indicated no acute abnormalities. No defects were noted and also patient had an echocardiogram. Echo indicated an EF of 55% to 60% with mild tricuspid and mitral regurgitation. No intervention from a Cardiology standpoint. The patient will be discharged home to follow up with primary. HOME MEDICATIONS: 1. Cipro 500 mg b.i.d. 2. Florastor 250 daily. 3. MiraLAX 17 g every 2 days. 4. Trazodone 50 mg at bedtime. 5. Reglan 5 mg q.i.d. 6. Lisinopril 20 mg daily. 7. Amlodipine 5 mg daily. 8. Baclofen 10 mg as needed. DISCHARGE PHYSICAL EXAMINATION: VITAL SIGNS: On discharge, temperature of 98.6, heart rate 79, respirations 12, 98% on room air, blood pressure 144/87. GENERAL: He is awake, alert, and oriented x3. Does not appear in distress. CV: S1, S2 present. No murmurs, rubs, gallops. Again, he will be discharged home. Follow up with his primary. Job ID: [id number]
--- NOTE | 2020-07-08 17:38 | EKG ---
Test Reason : Blood Pressure : / mmHG Vent. Rate : 109 BPM Atrial Rate : 109 BPM P-R Int : 148 ms QRS Dur : 074 ms QT Int : 384 ms P-R-T Axes : 071 019 063 degrees QTc Int : 517 ms Sinus tachycardia Left atrial enlargement Borderline ECG #2 Confirmed by KATJA MOHAN M.D. ([id number]), assignment editor VALDEMAR FELIX ([id number]) on 07/08/2020 5:38:11 PM Referred By: Confirmed By:KATJA MOHAN M.D.
== END 2020-07-03 16:45 | disposition home or self-care (01) | DRG 871 ==
LOC: ERS 16:48 → ERHOLD 21:18 → 2NO 06-28 16:00
PROVIDERS: ADMIT Internal Medicine; ATTEND Internal Medicine
PROC: 8E0ZXY6 Isolation (ICD-10-PCS; 2020-06-28)
PROC: 0T2BX0Z Change Drainage Device in Bladder, External Approach (ICD-10-PCS; principal; 2020-06-29)
DX: A41.52 Sepsis due to Pseudomonas (principal); I21.A1 Myocardial infarction type 2; J18.9 Pneumonia, unspecified organism; G82.50 Quadriplegia, unspecified; N39.0 Urinary tract infection, site not specified; T83.511A Infection and inflammatory reaction due to indwelling urethral catheter, initial encounter; I10 Essential (primary) hypertension; Z20.828 Contact with and (suspected) exposure to other viral communicable diseases; E78.5 Hyperlipidemia, unspecified; K21.9 Gastro-esophageal reflux disease without esophagitis; Y84.6 Urinary catheterization as the cause of abnormal reaction of the patient, or of later complication, without mention of misadventure at the time of the procedure; K59.04 Chronic idiopathic constipation; E78.00 Pure hypercholesterolemia, unspecified; A41.53 Sepsis due to Serratia; A41.59 Other Gram-negative sepsis; R31.9 Hematuria, unspecified; S11.93XS Puncture wound without foreign body of unspecified part of neck, sequela; W34.00XS Accidental discharge from unspecified firearms or gun, sequela; Z28.21 Immunization not carried out because of patient refusal; Z87.891 Personal history of nicotine dependence; Z79.899 Other long term (current) drug therapy
CPT/HCPCS: 36415; 71045; 74177; 78452; 80048; 80053; 80061; 81003; 81015; 82553; 83605; 83690; 84145; 84484; 85025; 87040; 87045; 87046; 87077; 87081; 87086; 87186; 87427; 87449; 87635; 93005; 93017; 93306; 96365; 96366; 96367; 96372; 96375; A9500; J0692; J0696; J1644; J1650; J1956; J2185; J2270; J2405; J2785; J3370; J3490; J7030; Q9967; S0028; U0003

== ENCOUNTER 2020-12-28 00:12 | Emergency (ER) | payer OTHER ==
[2020-12-28 00:53] LABS: Bacteria/HPF 3+ HPF (None Seen); Bilirubin Negative (Negative); Blood, Urine Trace (Negative); Clarity Turbid (Clear); Glucose, Urine (Dipstick) Normal (Negative); Ketone, Urine Negative (Negative); Leukocyte 500 Leu/uL (Negative); Nitrite Negative (Negative); Protein, Urine (Dipstick) Negative (Neg-Trace); Specific Gravity, Urine 1.008 (1.002-1.036); Squamous Epithelial 0-3 HPF (0-3); Urobilinogen Normal mg/dL (Less than 2); WBC/HPF Greater than 50 HPF (0-3)
[2020-12-28 01:02] LABS: #Eosinphils 0.4 thou/uL (0.0-0.7); #Lymphocytes 2.2 thou/uL (1.20-3.40); #Monocytes 0.5 thou/uL (0.11-0.59); #Neutrophils 3.3 thou/uL (1.40-6.50); %Basophils 0.4 % (0.0-1.0); %Eosinophils 6.5 % (0.0-10.0); %Monocytes 7.4 % (0.0-10.0); %Neutrophils 51.7 % (42.0-75.0); Hemoglobin 13.5 g/dL (14.0-18.0); Mean Corpuscular HGB CONC 32.2 g/dL (32.0-36.0); Mean Corpuscular Hemoglobin 28.8 pg (27.0-31.0); Mean Corpuscular Volume 89.5 fL (78.0-98.0); Mean Platelet Volume 7.6 fL (7.4-10.4); Platelet Count 281 thou/uL (130-400); RBC Distribution Width 12.4 % (11.5-14.5); Red Blood Cell (RBC) Count 4.68 mill/uL (4.70-6.10); White Blood Cell (WBC) Count 6.3 thou/uL (4.8-10.8)
[2020-12-28 01:26] LABS: ALT (SGPT) 29 U/L (8-55); AST (SGOT) 30 U/L (5-34); Albumin 3.7 g/dL (3.5-5.0); Alkaline Phosphatase 159 U/L (40-110); Anion Gap 16 mmol/L (10-20); BUN (Urea Nitrogen) 8 mg/dL (8.9-20.6); Bilirubin, Total 0.4 mg/dL (0.2-1.2); Calc. Creatinine Clearance 0 mL/min (70-130); Calcium 9.2 mg/dL (7.8-10.44); Carbon Dioxide 20 mmol/L (22-29); Chloride 106 mmol/L (98-107); Globulin 3.8 g/dL (2.4-3.5); Glucose 177 mg/dL (70-105); Lipase Less than 4 U/L (8-78); Potassium 3.7 mmol/L (3.5-5.1); Protein, Total 7.5 g/dL (6.0-8.3); Sodium 138 mmol/L (136-145)
[2020-12-28] MEDS ORDERED: Morphine 4 MG/ML VIAL ONE (01:54)
[2020-12-28] MEDS ORDERED: Iopamidol-370 76% 500 ML 1 ML ONE (14:40)
== END 2020-12-28 03:12 | disposition home or self-care (01) ==
LOC: ERS 00:12
DX: K59.00 Constipation, unspecified (principal); E78.5 Hyperlipidemia, unspecified; I10 Essential (primary) hypertension; K21.9 Gastro-esophageal reflux disease without esophagitis; Z79.899 Other long term (current) drug therapy
CPT/HCPCS: 36415; 71045; 74177; 80053; 81003; 81015; 83690; 84484; 85025; 87086; 93005; 96374; J2270; Q9967